=== PATIENT | female | born 1935 | race Caucasian/White ===

== ENCOUNTER 2018-09-17 10:36 | Day surgery (SDC) | payer MEDICARE, MEDICAID, SELFPAY ==
[2018-09-17] VITALS (7 sets, daily range): BP systolic 116–146; BP diastolic 69–84; PULSE 57–69; RESP 11–16; TEMP 36.2–36.6; O2SAT 94–98; BMI 25.4
--- NOTE | 2018-09-17 | PATH_ITS ---
[facility] Accession Number: [id number] . 01 Material submitted: . PART A: GASTRIC BIOPSIES PART B: BIOPSY OF GE JUNCTION PART C: ASCENDING COLON POLYP PART D: SIGMOID COLON POLYP . 01 Clinical history: . A: BIOPSIES FOR H.PYLORI . 02 Diagnosis: A. Gastric Biopsies: Focal chronic gastritis involving fundic mucosa with a fragment of normal appearing antral mucosa. Negative for evidence of Helicobacter on H/E stain. Negative for intestinal metaplasia. Negative for dysplasia and malignancy. . B. Biopsy, Gastroesophageal Junction: Gastroesophageal junction mucosa focally positive for specialized metaplasia, consistent with Cornejo's esophagus, as demonstrated by alcian blue stain. Negative for dysplasia and malignancy. Negative for squamous intraepithelial eosinophils. . C. Biopsy, Ascending Colon Polyp: Single polypoid-shaped fragment of colon mucosa associated with prominent mucosal lymphoid aggregate. Negative for dysplasia and malignancy. . D. Biopsy, Sigmoid Colon Polyp: Polypoid-shaped fragment of normal appearing colon mucosa consistent with mucosal polypoid redundancy. Negative for evidence of neoplasm and/or hyperplasia on multiple serial histologic sections. MR/09/19/2018 . 02 Electronically signed: . Wai Severino MD, Pathologist NPI- [id number] . 01 Gross description: . Received four formalin-filled containers each labeled with the patient's name. . A. In a container labeled gastric are three 0.1 to 0.3 cm portions of tissue. Entirely submitted in cassette A. B. In a container labeled GE junction, the specimen consists of a 0.3 cm portion of tissue. Entirely submitted in cassette B. C. In a container labeled ascending colon polyp, the specimen consists of a 0.2 cm portion of tissue. Entirely submitted in cassette C. D. In a container labeled sigmoid colon polyp, the specimen consists of a 0.1 cm portion of tissue. Entirely submitted in cassette D. [place] [id number] / . Pathologist provided ICD-10: K22.70 . 02 CPT . 581360, 241152, 677148, 693302, 010652 Performed at: 01 [facility] [address] [address], [place], [place] [id number] MD Toni Betancourt MD Phone: [phone] Performed at: [id number] [place] [id number] MD Whit Maurer MD Phone: [phone]
--- NOTE | 2018-09-17 11:29 | PM.HP.1 ---
History of Present Illness Date Patient Seen: 09/17/18 Chief complaint: [id number] COLONOSCOPY/EGD W/POSS BX Narrative: The patient is an 83-year-old female who was last seen at our office on August 19, 2018 for abdominal pain and a history of colon polyps. Please refer to that office note for further details. The patient currently has no alarm symptoms such as weight loss, or persistent vomiting. She states that her hemorrhoid has been irritated by the colon prep and she had a bit of bleeding yesterday. Patient History Medical History Abdominal pain (Acute) Adenomatous colon polyp (Acute) Hypercholesterolemia (Acute) TIA (transient ischemic attack) (Acute ~2012) Surgical History History of appendectomy (Acute) History of colonoscopy (Acute) History of tonsillectomy (Acute) Social History household members: none Family & Social History Social History: household members none Meds Home Medications Medication Instructions Recorded Confirmed Type ASPIRIN (Aspirin EC) 81 mg PO Q DAY #0 11/20/10 09/17/18 History [MULTIVITAMIN] 1 tab PO DAILY #0 11/20/10 09/17/18 History [VITAMIN D] 1 cap PO DAILY #0 11/20/10 09/17/18 History simvastatin 40 mg PO HS #0 11/20/10 09/17/18 History Fish Oil (#EPA/GLA) 2 sgl PO QDAY #0 03/14/12 09/17/18 History Allergies Allergy/AdvReac Type Severity Reaction Status Date / Time No Known Drug Allergies Allergy Verified 09/17/18 10:58 Exam Vital Signs (past 8 hours): - 09/17/18 11:11 Temperature 97.8 F Pulse Rate 69 Respiratory Rate 16 Blood Pressure 116/84 Pulse Oximetry 94 Oxygen Delivery Method Room Air Narrative Exam Narrative: General: Patient is well developed, not in apparent distress Cardiovascular: Regular rate and rhythm, no murmurs, rubs, or gallops; no evidence of edema; no palpable abdominal aortic aneurysm Gastrointestinal: Normoactive bowel sounds, soft, nontender, nondistended, no rebound tenderness, no hepatosplenomegaly, no evidence of hernia Assessment & Plan Assessment & Plan narrative: 83-year-old female with upper abdominal pain possibly due to dyspepsia who is here for an upper endoscopy. The patient also has a history of colon polyps and is due for colon polyp surveillance. Regarding the procedure(s), the risks and potential complications, benefits, and alternatives (including not doing the procedure) were discussed with the patient. The risks include but are not limited to bleeding, splenic injury, infection, perforation which may require surgical intervention, missed lesions, and adverse reactions to sedative medicines. After a question and answer period, the patient agreed to proceed with the procedure(s) and gives informed consent.
--- NOTE | 2018-09-17 12:01 | P.OP.ENDO_ITS ---
Operative Date/Time/Diagnoses Date of procedure: 09/17/18 Procedure Notes Procedure in detail: Surgeon: Cm Moss MD Procedure: Esophagogastroduodenoscopy with biopsy and colonoscopy with polypectomy Preoperative diagnosis: Abdominal pain, colon polyp surveillance Postoperative diagnosis: Irregular Z-line status post biopsy, gastroduodenitis status post gastric biopsy for H pylori, hiatal hernia; colon polyp status post polypectomy, grade 2 internal hemorrhoids, external hemorrhoids Medications: Conscious sedation using 4 mg IV of Midazolam and 100 mcg IV of Fentanyl for EGD; additional 1 mg IV midazolam for colonoscopy Preanesthesia Assessment An H and P was performed/updated and the Px?s ASA class is 2. The procedure was discussed in detail with the patient. The potential risks and complications including infection, bleeding, missed lesions, perforation, need for surgery in case of perforation, prolonged hospital stay, and were explained. A brief question and answer period was allotted and once all questions were answered, informed consent was obtained. The patient was brought back to the procedure room and placed on standard monitoring. The patient?s vital signs were monitored continuously throughout the entire procedure. Prior to starting, a timeout was performed to confirm the patient?s identity, allergies, medications, and procedure. Procedure in detail The patient was placed in left lateral decubitus position and a bite block was inserted. The tip of the upper endoscope was placed into the mouth and advanced without difficulty under direct visualization into the esophagus. Esophagus: The Z-line was irregular at 39 cm biopsies were taken to rule out Cornejo's esophagus Stomach: There was note of a small hiatal hernia. In the antrum and pre- pyloric area there was note of erythema consistent with gastritis. Biopsies were taken from the body and antrum to rule out H pylori Duodenum: There was erythema in the duodenal bulb and 1st portion of duodenum consistent with duodenitis. The 2nd portion of duodenum appeared normal After the upper endoscopy, preparations were made for the colonoscopy. Once adequate sedation was obtained a DANNA was performed. The digital rectal examination revealed external hemorrhoids. The tip of the colonoscope was placed in the anal canal and advanced without difficulty all the way to the cecum which was identified by the appendiceal orifice and the ileocecal valve. The terminal ileum was intubated to a distance of 5 cm from the ileocecal valve and the mucosa appeared normal. The colonoscope was brought back to the cecum and careful examination of all de la rosa of the colon was performed with irrigation of any residual stool In the ascending colon there was note of a 2 mm sessile polyp which was removed by means of cold Jumbo forceps. Resection and retrieval were complete with minimal bleeding. In the sigmoid colon, there was note of a 3 mm sessile polyp which was removed by means of cold Jumbo forceps. Resection and retrieval were complete with minimal bleeding. Retroflexion was performed in the rectum which revealed grade 2 internal hemorrhoids. Large external hemorrhoids were also seen on withdrawal of the scope. The patient tolerated the procedure well and will be brought back to the recovery area to be discharged once criteria are met. The prep was judged to be good/excellent and adequate to identify polyps less than 5 mm. The withdrawal time was 10 min. The total physician intraservice time was 28 min. Complications There were no complications and estimated blood loss was minimal. Recommendations Resume previous diet Continue outpatient medications Follow-up pathology results Repeat colonoscopy in 5 years if the polyps are adenomatous otherwise no further polyp surveillance is recommended given the patient's age Follow-up at our office with Dr. Peguero if the patient has persistent abdominal pain An emergency contact number was given to the patient for any complications related to the procedure
[2018-09-17] MEDS: MIDAZOLAM 5 MG/5 ML VIAL IV (12:02)
[2018-09-17] MEDS: fentaNYL 250 MCG/5 ML INJ IV (12:03)
--- NOTE | 2018-09-17 12:36 | PM.DS.1 ---
History of Present Illness Chief complaint: [id number] [id number] COLONOSCOPY/EGD W/POSS BX Narrative: The patient is an 83-year-old female who was last seen at our office on August 19, 2018 for abdominal pain and a history of colon polyps. Please refer to that office note for further details. The patient currently has no alarm symptoms such as weight loss, or persistent vomiting. She states that her hemorrhoid has been irritated by the colon prep and she had a bit of bleeding yesterday. Discharge Providers Discharge Date: 09/17/18 Primary care physician: David Manley MD Discharge provider: Cm Moss MD Exam Vital Signs (past 8 hours): - 09/17/18 11:11 Temperature 97.8 F Pulse Rate 69 Respiratory Rate 16 Blood Pressure 116/84 Pulse Oximetry 94 Oxygen Delivery Method Room Air Narrative Exam Narrative: General: Patient is well developed, not in apparent distress Cardiovascular: Regular rate and rhythm, no murmurs, rubs, or gallops; no evidence of edema; no palpable abdominal aortic aneurysm Gastrointestinal: Normoactive bowel sounds, soft, nontender, nondistended, no rebound tenderness, no hepatosplenomegaly, no evidence of hernia Discharge Plan Discharge Med Rec/Prescriptions Prescriptions: Continued ASPIRIN (Aspirin EC) 81 mg PO Q DAY Qty: 0 RF: 0 simvastatin 40 MG tablet 40 mg PO HS Qty: 0 RF: 0 [MULTIVITAMIN] 1 tab PO DAILY Qty: 0 RF: 0 [VITAMIN D] 1 cap PO DAILY Qty: 0 RF: 0 Fish Oil (#EPA/GLA) 2 sgl PO QDAY Qty: 0 RF: 0 Follow up/Referrals: David Manley MD [Primary Care Provider] - Discharge Orders: Discharge (Order); Ordered 09/17/18 Ordered By: Cm Moss Provider Discharge Instructions Diet: Diet as Tolerated Visit Report/Discharge Packet Stand Alone Forms: Colonoscopy Result: [facility], EGD Result: [facility] Discharge Data Primary Care Provider: David Manley Attending Provider: Cm Moss
== END 2018-09-17 14:00 ==
LOC: ENDO 10:45
PROVIDERS: PCP Internal Medicine; Visit Provider Internal Medicine Gastroenterology
PROC: 0DJ08ZZ Inspection of Upper Intestinal Tract, Via Natural or Artificial Opening Endoscopic (ICD-10-PCS; CPT 43235; principal; 2018-09-17 12:30)
PROC: 0DJD8ZZ Inspection of Lower Intestinal Tract, Via Natural or Artificial Opening Endoscopic (ICD-10-PCS; CPT 45378; 2018-09-17 12:30)
DX: K29.70 Gastritis, unspecified, without bleeding (principal); Z86.010 Personal history of colon polyps; E78.00 Pure hypercholesterolemia, unspecified; F17.210 Nicotine dependence, cigarettes, uncomplicated; D12.2 Benign neoplasm of ascending colon; D12.5 Benign neoplasm of sigmoid colon; K44.9 Diaphragmatic hernia without obstruction or gangrene; K64.1 Second degree hemorrhoids; K64.4 Residual hemorrhoidal skin tags
CPT/HCPCS: 45380; 43239; 88305; 88312; J2250; J3010

== ENCOUNTER → 2019-01-14 12:31 | Outpatient (CLI) | payer MEDICARE, MEDICAID, SELFPAY ==
--- NOTE | 2019-01-14 | DI.RAD.S_ITS ---
PROCEDURE: XR HIP W PEL IF DONE RT 2V INDICATIONS: right hip pain TECHNIQUE: 2 views of the hip were acquired. COMPARISON: None. FINDINGS: Bones: No fractures or dislocations. No suspicious bony lesions. The visualized pelvic ring appears intact. Soft tissues: No suspicious soft tissue calcifications or masses. IMPRESSION: Mild hip joint osteoarthritis, no trauma found. Dictated by: Satish Plaza M.D. on 01/14/2019 at 13:26 Approved by: Satish Plzaa M.D. on 01/14/2019 at 13:26
== END ==
PROVIDERS: PCP Internal Medicine; Visit Provider Nurse Practitioner Family
DX: M25.551 Pain in right hip (principal); M16.11 Unilateral primary osteoarthritis, right hip
CPT/HCPCS: 73502

== ENCOUNTER → 2019-07-21 13:24 | Outpatient (CLI) | payer MEDICARE, MEDICAID, SELFPAY ==
[2019-07-21 15:39] LABS: Cholesterol 150 mg/dL (140-199); HDL Cholesterol 51 mg/dL (40-60); LDL Cholesterol Calculated 65 mg/dL (<100); Triglycerides 169 mg/dL (35-150)
== END ==
PROVIDERS: PCP Internal Medicine; Visit Provider Internal Medicine
DX: E78.5 Hyperlipidemia, unspecified (principal)
CPT/HCPCS: 36415; 80061

== ENCOUNTER 2020-02-16 13:47 | Emergency (ER) | payer MEDICARE, MEDICAID, SELFPAY ==
[2020-02-16 13:56] VITALS: BP 133/91; PULSE 64; RESP 18; TEMP 36.8; O2SAT 96
--- NOTE | 2020-02-16 13:58 | DI.CT.S_ITS ---
PROCEDURE: CT HEAD/BRAIN WO CON INDICATIONS: LEFT side numbness SINCE AM TECHNIQUE: Noncontrast 4.5 mm thick angled axial sections acquired from the foramen magnum to the vertex, with coronal and sagittal reformats. For radiation dose reduction, the following was used: automated exposure control, adjustment of mA and/or kV according to patient size. COMPARISON: None. FINDINGS: Image quality: Excellent. CSF spaces: Basal cisterns are patent. No extra-axial fluid collections. The ventricles are symmetric in size and shape. Brain: No intracranial bleeds or masses. There is cerebral volume loss for age, with resultant ventricular and sulcal prominence. There are periventricular and deep white matter chronic small vessel ischemic changes. There is intracranial internal carotid artery atherosclerosis. Skull and face: Calvarium and visualized facial bones appear intact, without suspicious lesions. Sinuses: Visualized sinuses and mastoids are clear. IMPRESSION: No acute intracranial finding. No CT evidence of acute large territory infarct. If there is continued clinical concern for acute or recent ischemia, MRI is recommended. Dictated by: Tony Temple M.D. on 02/16/2020 at 14:15 Approved by: Tony Temple M.D. on 02/16/2020 at 14:17
--- NOTE | 2020-02-16 14:10 | PC.NURSE ---
Patient reports waking around 0700, reports feeling tired/fatigued and noticed some left arm and left leg numbness/pins/tingling. Denies weakness, denies headache. Negative Fast exam. Reports TIA in the past that involved numbness in left arm.
[2020-02-16 14:12] LABS: Add Manual Diff / Slide Review NO; Basophils Absolute Auto 100 /uL (0-100); Basophils Percent Auto 1.2 % (0-2); Eosinophils Absolute Auto 100 /uL (0-450); Hematocrit 41.6 % (36-46); Hemoglobin 13.8 g/dL (12.0-16.0); Lymphocytes Absolute Auto 1700 /uL (1100-4500); Lymphocytes Percent Auto 24.2 % (25-40); Mean Corpuscular HGB Conc 33.1 % (30-36); Mean Corpuscular Hemoglobin 31.7 PG (26-34); Mean Corpuscular Volume 95.6 fL (80-100); Monocytes Absolute Auto 500 /uL (0-900); Monocytes Percent Auto 7.7 % (3-14); Neutrophils Absolute Auto 4600 /uL (1500-7000); Neutrophils Percent Auto 64.9 % (50-75); Platelet Count 232 X10^3/uL (150-400); Red Blood Cell Count 4.35 X10^6/uL (4.0-5.2); Red Cell Distribution Width 12.9 % (11.6-14.8); White Blood Cell Count 7.1 X10^3/uL (4.5-11.0)
[2020-02-16 14:18] LABS: Prothrombin Time 11.5 SECONDS (10.1-12.7)
[2020-02-16 14:23] LABS: Alanine Aminotransferase 13 IU/L (<35); Albumin Globulin Ratio 1.4 (1.0-2.8); Alkaline Phosphatase 82 U/L (38-126); Aspartate Aminotransferase 24 IU/L (14-36); BUN Creatinine Ratio 20.8 (6-22); Bilirubin Total 0.3 mg/dL (0.2-1.3); Blood Urea Nitrogen 20 mg/dL (7-17); Calcium 9.5 mg/dL (8.4-10.2); Carbon Dioxide 24 mmol/L (22-32); Chloride 100 mmol/L (98-107); Creatine Kinase 39 U/L (30-135); Estimated Glomerular Filt Rate 55.6 mL/min (>60); Globulin 2.8 g/dL (1.7-4.1); Glucose 106 mg/dL (80-110); HEMOLYSIS 17 (0-50); Potassium 4.2 mmol/L (3.4-5.1); Sodium 132 mmol/L (137-145); Total Protein 6.8 g/dL (6.3-8.2)
[2020-02-16 14:34] LABS: Troponin I < 0.012 ng/mL (0.01-0.034)
--- NOTE | 2020-02-16 14:50 | ED.NEUROSD ---
HPI - Neuro Symptoms/Deficit General Chief Complaint: Neuro Symptoms/Deficit Stated Complaint: left side numbness Time Seen by Provider: 02/16/20 14:25 Source: patient Mode of arrival: Ambulatory History of Present Illness HPI Narrative: CC: left hemianesthesia/ paresthsia HPI: The patient is an 84-year-old female who states that she woke up at approximately 5:00 a.m. and noticed that she had left-sided numbness of her body. For she stated that it just felt strange but did not appreciate the the degree of the sensation. The patient noted that when she woke up at 7:00 a.m. in the morning the numbness was very prominent. She states that it was difficult to describe because it was a numbness associated with tingling that was almost mildly painful to touch which extended from her left shoulder all the way down to the toes of her foot. She states that it just felt very different. She admits to having a TIA in the past. She denied any associated headache change in vision double vision blind spots. She has had no fall or injury no neck pain. She denied a history of diabetes mellitus hypertension seizure disorder stroke myocardial infarction or COPD. The patient occasionally smokes cigarettes does not drink alcohol in used to use marijuana but no longer does. She denied any chest pain cough shortness of breath palpitations dizziness history of being on any anticoagulant or atrial fibrillation. She has had no back ache abdominal pain nausea vomiting diarrhea incontinence of urine or stool or any urinary symptoms. On Anticoagulants: No (81mg asa) Related Data Home Medications Medication Instructions Recorded Confirmed ASPIRIN (Aspirin EC) 81 mg PO Q DAY #0 11/20/10 09/17/18 [MULTIVITAMIN] 1 tab PO DAILY #0 11/20/10 09/17/18 [VITAMIN D] 1 cap PO DAILY #0 11/20/10 09/17/18 simvastatin 40 mg PO HS #0 11/20/10 09/17/18 Fish Oil (#EPA/GLA) 2 sgl PO QDAY #0 03/14/12 09/17/18 Previous Rx's Medication Instructions Recorded clopidogrel [Plavix] 75 mg PO DAILY #7 tab 02/16/20 Allergies Allergy/AdvReac Type Severity Reaction Status Date / Time No Known Drug Allergies Allergy Verified 09/17/18 10:58 Review of Systems Review of Systems Narrative: Patient's review of systems were all negative except for those mentioned in the history of present illness. Patient History Medical History Abdominal pain (Acute) Adenomatous colon polyp (Acute) Hypercholesterolemia (Acute) TIA (transient ischemic attack) (Acute ~2013) Surgical History History of appendectomy (Acute) History of colonoscopy (Acute) History of tonsillectomy (Acute) Social History household members: none Exam Narrative Exam Narrative: PHYSICAL EXAM: CONSTITUTIONAL: Awake, Alert, Oriented, Coherent, Cooperative pleasant in NAD. Does not appear toxic or ill. HEAD: AT/NC, no facial asymmetry. She has a symmetrical smile. She moves both sides of her forehead. She is able to move her tongue sideways with full range of motion. EENT: PERRL, FROM of eyes, no discharge, no nystagmus NOSE:No epistaxis or nasal drainage MOUTH:Oral mucosa is moist and pink, posterior pharynx is without erythema or exudate. NECK: Supple, no obvious JVD, Trachea is midline without stridor, no palpable LN. SPINE: Palpation of the cervical, Thoracic, Lumbar or Sacral spine reveals no gross deformity or tenderness. No CVA tenderness. THORAX: No deformity, retractions, chest wall tenderness. LUNGS: Clear, symmetrical breath sounds without respiratory distress. HEART: Normal heart tones, regular rhythm and rate without murmur. ABDOMEN: Soft, non-tender, normal bowel sounds without guarding, rebound, rigidity or palpable mass. EXTREMITIES: No edema, deformity, tenderness or cyanosis. SKIN: No rash, bruising, petechiae or purpura. NEURO: Awake, alert, oriented, conversive, cranial nerves II-XII are symmetrical , moves all 4 extremities and is ambulatory. The patient has no drift of either the arm or the leg. The patient has numbness tingling paresthesias of the entire left arm thorax abdomen and leg. [id number] is within normal limits. The patient has normal gaze. She has a slight field defect left lower quadrant which is chronic according to the patient. MENTAL HEALTH: Does not appear anxious or depressed. Initial Vital Signs Initial Vital Signs: Vital Signs Temperature 98.3 F 02/16/20 13:56 Pulse Rate 64 02/16/20 13:56 Respiratory Rate 18 02/16/20 13:56 Blood Pressure 133/91 H 02/16/20 13:56 Pulse Oximetry 96 02/16/20 13:56 Scores NIH Stroke Scale Level of Conciousness: Alert, keenly responsive Ask month/age: Answers both questions correctly. Open/close eyes, close hand: Performs both tasks correctly Best gaze horizontal: Normal Visual valentino: No visual loss Facial palsy: Normal symetrical movement Left arm drift: No drift for full 10 sec Right arm drift: No drift for full 10 sec Left leg drift: No drift for full 10 sec Right leg drift: No drift for full 10 sec Limb ataxia: Absent Sensory on face/arms/legs: Mild to moderate sensory loss, can tell touch Best language: No aphasia, normal Dysarthria: Normal Extinction or inattention: No abnormality Total NIH Stroke scale score: 1 Course Course Course Narrative: 1451: CT of the patient's head revealed: MPRESSION: No acute intracranial finding. No CT evidence of acute large territory infarct. If there is continued clinical concern for acute or recent ischemia, MRI is recommended. 1554: CTA of the head and neck revealed: IMPRESSION: Focal atherosclerotic calcification with irregularity and narrowing can be seen involving the proximal internal carotid arteries, with approximately 70% narrowing on the left at approximately 60% narrowing on the right. There is an apparent infundibulum seen involving the left MCA trifurcation, measuring 3-4 mm. Mild pulmonary emphysematous changes seen. Any quantitative measurements of stenosis were performed using NASCET criteria. 1600: The patient was informed that she has bilateral carotid stenoses on CT angiogram and that her initial CT of her head revealed no acute intracranial pathology. The patient was a informed that she is at risk of developing a stroke with these stenoses. She was also informed that we were obtaining an MRI of the brain to rule out any other possible stroke arm especially the area of the basal ganglia . The patient states that she was last known to be well at 5:00 a.m. this morning and the patient believes that she had probable symptoms in the middle of the night but did not pay any attention to them. 1800: MRI of the patient's brain revealed: IMPRESSION: No findings of acute or subacute infarction can be seen. Note is made of age-appropriate brain parenchymal volume loss and chronic small vessel ischemic changes. Incidental note is made of: Bilateral lens replacements Left-sided jodi bullosa 1814: Discussed the patient with the Teleneurology physician Dr. Haywood who agrees with me that this sounds like a thalamic stroke. He recommends that the patient be administered 150 mg of Plavix now and then be placed on 75 mg daily and continue her aspirin of 81 mg per day. She needs to be seen in follow-up by her primary care physician and possibly referred for evaluation of her carotid stenoses. Orders Ordered: ED Orders 02/16/20 13:58 CT head/brain wo con Stat 02/16/20 14:04 Complete Blood Count AUTO DIFF Stat Comprehensive Metabolic Panel Stat Erythrocyte Sedimentation Rate Stat Prothrombin Time INR Stat Troponin & CK Cardiac Panel Stat 02/16/20 14:51 CT angio head and neck Stat 02/16/20 15:55 MR head/brain wo con Stat Discontinued Medications Clopidogrel Bisulfate (Plavix) 150 mg PO NOW ONE Stop: 02/16/20 18:18 Last Admin: 02/16/20 18:30 Dose: 150 mg Documented by: JANE Vital Signs Vital signs: Vital Signs - 8 hr 02/16/20 13:56 02/16/20 18:32 Temperature 98.3 F Pulse Rate 64 77 Respiratory Rate 18 16 Blood Pressure 133/91 H 150/94 H Pulse Oximetry 96 99 MDM - Neuro Symptoms/Deficit Medical Records Attestation: I reviewed the patient's medical records. Lab Data Attestation: I reviewed the patient's lab results. Result diagrams: 02/16/20 14:04 02/16/20 14:04 Labs: Lab Results 02/16/20 02/16/20 02/16/20 Range/Units 14:04 14:04 14:04 WBC 7.1 (4.5-11.0) X10^3/uL RBC 4.35 (4.0-5.2) X10^6/uL Hgb 13.8 (12.0-16.0) g/dL Hct 41.6 (36-46) % MCV 95.6 (80-100) fL MCH 31.7 (26-34) PG MCHC 33.1 (30-36) % RDW 12.9 (11.6-14.8) % Plt Count 232 (150-400) X10^3/uL Neut % (Auto) 64.9 (50-75) % Lymph % (Auto) 24.2 L (25-40) % [place] % (Auto) 7.7 (3-14) % Eos % (Auto) 2.0 (2-4) % Baso % (Auto) 1.2 (0-2) % Neut # (Auto) 4600 (5098-6794) /uL Lymph # (Auto) 1700 (7047-0927) /uL [place] # (Auto) 500 (0-900) /uL Eos # (Auto) 100 (0-450) /uL Baso # (Auto) 100 (0-100) /uL ESR (0-20) MM/HR PT 11.5 (10.1-12.7) SECONDS INR 1.0 (0.9-1.3) Sodium 132 L (137-145) mmol/L Potassium 4.2 (3.4-5.1) mmol/L Chloride 100 (98-107) mmol/L Carbon Dioxide 24 (22-32) mmol/L BUN 20 H (7-17) mg/dL Creatinine 0.96 (0.52-1.04) mg/dL Estimated GFR 55.6 L (>60) mL/min BUN/Creatinine Ratio 20.8 (6-22) Glucose 106 (80-110) mg/dL Calcium 9.5 (8.4-10.2) mg/dL Total Bilirubin 0.3 (0.2-1.3) mg/dL AST 24 (14-36) IU/L ALT 13 (<35) IU/L Alkaline Phosphatase 82 (38-126) U/L Total Creatine Kinase 39 (30-135) U/L CK-MB (CK-2) TNP CK-MB (CK-2) Rel Index TNP Troponin I < 0.012 (0.01-0.034) ng/mL Total Protein 6.8 (6.3-8.2) g/dL Albumin 4.0 (3.5-5.0) g/dL Globulin 2.8 (1.7-4.1) g/dL Albumin/Globulin Ratio 1.4 (1.0-2.8) 02/16/20 Range/Units 14:04 WBC (4.5-11.0) X10^3/uL RBC (4.0-5.2) X10^6/uL Hgb (12.0-16.0) g/dL Hct (36-46) % MCV (80-100) fL MCH (26-34) PG MCHC (30-36) % RDW (11.6-14.8) % Plt Count (150-400) X10^3/uL Neut % (Auto) (50-75) % Lymph % (Auto) (25-40) % [place]ack[place] % (Auto) (3-14) % Eos % (Auto) (2-4) % Baso % (Auto) (0-2) % Neut # (Auto) (5067-0817) /uL Lymph # (Auto) (1621-4487) /uL [place]acken # (Auto) (0-900) /uL Eos # (Auto) (0-450) /uL Baso # (Auto) (0-100) /uL ESR 7 (0-20) MM/HR PT (10.1-12.7) SECONDS INR (0.9-1.3) Sodium (137-145) mmol/L Potassium (3.4-5.1) mmol/L Chloride (98-107) mmol/L Carbon Dioxide (22-32) mmol/L BUN (7-17) mg/dL Creatinine (0.52-1.04) mg/dL Estimated GFR (>60) mL/min BUN/Creatinine Ratio (6-22) Glucose (80-110) mg/dL Calcium (8.4-10.2) mg/dL Total Bilirubin (0.2-1.3) mg/dL AST (14-36) IU/L ALT (<35) IU/L Alkaline Phosphatase (38-126) U/L Total Creatine Kinase (30-135) U/L CK-MB (CK-2) CK-MB (CK-2) Rel Index Troponin I (0.01-0.034) ng/mL Total Protein (6.3-8.2) g/dL Albumin (3.5-5.0) g/dL Globulin (1.7-4.1) g/dL Albumin/Globulin Ratio (1.0-2.8) Discharge Plan Departure Patient Disposition: Home Clinical Impression: Hemianesthesia, Paresthesia of left arm and leg Carotid stenosis Qualifiers: Laterality: bilateral Qualified Code(s): I65.23 - Occlusion and stenosis of bilateral carotid arteries Stroke Qualifiers: CVA mechanism: unspecified Qualified Code(s): I63.9 - Cerebral infarction, unspecified Discharge Date/Time: 02/16/20 18:45 Instructions: DI for Stroke-Ischemic Activity Restrictions/Additional Instructions: 1. You need to follow-up with your primary care physician and be re-evaluated in 2-5 days. 2. You need to continue to take your aspirin 81 mg per day. 3. You need to take Plavix 75 mg daily for the next 2 weeks starting tomorrow. 4. If you develop any other symptoms of weakness headache changes in vision or other symptoms of a stroke you need to return to the emergency department. 5. You need to follow-up with your primary care physician to be referred to evaluate to the narrowings of your carotid arteries and follow them. Prescriptions: New clopidogrel [Plavix] 75 mg tablet 75 mg PO DAILY Qty: 7 RF: 1 No Action ASPIRIN (Aspirin EC) 81 mg PO Q DAY Qty: 0 RF: 0 simvastatin 40 MG tablet 40 mg PO HS Qty: 0 RF: 0 [MULTIVITAMIN] 1 tab PO DAILY Qty: 0 RF: 0 [VITAMIN D] 1 cap PO DAILY Qty: 0 RF: 0 Fish Oil (#EPA/GLA) 2 sgl PO QDAY Qty: 0 RF: 0 Referrals: David Manley MD [Primary Care Provider] -
--- NOTE | 2020-02-16 14:51 | DI.CT.S_ITS ---
PROCEDURE: CT ANGIO HEAD AND NECK INDICATIONS: left hemianesthesia/ hemiparesthesia TECHNIQUE: Noncontrast images were performed earlier in the day and not repeated. After the administration of intravenous contrast, 1 mm thick sections acquired from the aortic arch through the [place] of [place]. Post-contrast 4.5 mm thick sections then re-acquired from the foramen magnum to the vertex. 3-dimensional yckzzem-ygtatxjpp-pholjczvrg (MIP) and/or volume rendering reformats were acquired of the central intracranial vasculature and neck separately. COMPARISON: [facility], MR, STROKE PROTOCOL A, 06/10/2007, 19:30. [facility], CT, CT HEAD/BRAIN WO CON, 02/16/2020, 13:55. [facility], CT, HEAD WITHOUT CONTRAST, 06/10/2007, 11:58. FINDINGS: Image quality: Excellent. BRAIN: CSF spaces: Ventricles are normal in size and shape. Basal cisterns are patent. No extra-axial fluid collections. Brain: No midline shift. No intracranial bleeds or masses. Bright-white matter interface appears intact. Skull and face: Calvarium and facial bones appear intact, without suspicious lesions. Orbits appear normal. Sinuses: Sinuses and mastoids are clear. HEAD CT ANGIOGRAPHY: Anterior circulation: Intracranial internal carotid arteries are normal in size and flow. The flow within the paired anterior cerebral arteries is normal and symmetric. An apparent infundibulum is seen involving the left MCA trifurcation, as on series 4, image 62 measuring 3-4 mm. The flow within the middle cerebral arteries is normal and symmetric. The anterior communicating artery is seen. Posterior circulation: Visualized portions of the vertebral arteries demonstrate normal caliber, and join to form a normal appearing basilar artery. Flow within the posterior cerebral arteries is normal and symmetric. No aneurysms are seen. NECK CT ANGIOGRAPHY: Carotid system: The great vessels demonstrate a conventional anatomy as they arise from the aortic arch. Dense atherosclerotic calcification can be seen of the aortic arch and the proximal great vessels. The origins of the common carotid arteries appear patent. The common carotid arteries demonstrate normal caliber and courses. The bifurcation regions demonstrate atherosclerotic calcification and irregularity. There is approximately 70% narrowing seen involving the left proximal internal carotid artery and approximately 60% narrowing seen involving the right proximal internal carotid artery. The more distal internal carotid arteries demonstrate normal course and caliber. Posterior circulation: The origins of the vertebral arteries both appear widely patent. The more superior extracranial portions of both vertebral arteries also demonstrate normal courses and calibers. They join to form a normal appearing basilar artery. Soft tissues: Visualized neck soft tissues demonstrate no suspicious abnormalities. Mild emphysematous changes are seen at the lung apices, including subpleural bleb formation. Bilateral globe surgery can be seen. Bones: No suspicious bony lesions. Visualized cervical spine appears normally aligned. There is moderate to severe disc space narrowing seen at C4-C5 with moderate disc space narrowing seen at C5-C6 and C6-C7. Focal degenerative changes seen involving the C1-C2 interface anteriorly. IMPRESSION: Focal atherosclerotic calcification with irregularity and narrowing can be seen involving the proximal internal carotid arteries, with approximately 70% narrowing on the left at approximately 60% narrowing on the right. There is an apparent infundibulum seen involving the left MCA trifurcation, measuring 3-4 mm. Mild pulmonary emphysematous changes seen. Any quantitative measurements of stenosis were performed using NASCET criteria. Dictated by: Kash Monsalve M.D. on 02/16/2020 at 14:28 Approved by: Kash Monsalve M.D. on 02/16/2020 at 14:33
[2020-02-16 15:19] LABS: Erythrocyte Sedimentation Rate 7 MM/HR (0-20)
--- NOTE | 2020-02-16 15:30 | PC.NURSE ---
patient passed swallow evaluation. Snack provided to patient per [place]
--- NOTE | 2020-02-16 15:55 | DI.MRI.S_ITS ---
PROCEDURE: MR HEAD/BRAIN WO CON INDICATIONS: basal ganglia stroke with Hemianesthesia/ paresthesia TECHNIQUE: Non-contrast axial T1 spin echo, axial T2 fast spin echo, sagittal and axial FLAIR, coronal T2 fast spin echo, axial gradient echo, axial diffusion and ADC through the brain. COMPARISON: [facility], CT, CT HEAD/BRAIN WO CON, 02/16/2020, 13:55. [facility], CT, CT ANGIO HEAD AND NECK, 02/16/2020, 14:48. [facility], MR, STROKE PROTOCOL A, 06/10/2007, 19:30. FINDINGS: Image quality: Excellent. CSF spaces: Ventricles appear symmetric in size and shape. Basal cisterns are patent. No extra-axial fluid collections. Brain: No intracranial bleeds or mass effects. There is cerebral volume loss for age. There are periventricular and deep white matter chronic small vessel ischemic changes. Brainstem appears normal. Diffusion-weighted images show no acute ischemic insults. No chronic ischemic insults. Normal intravascular flow voids are present. Skull and face: Calvarial bone marrow is normal in signal. Orbits are normal. Note is made of bilateral lens replacements. Sinuses: Sinuses and mastoids are clear. A left-sided jodi bullosa is incidentally noted. IMPRESSION: No findings of acute or subacute infarction can be seen. Note is made of age-appropriate brain parenchymal volume loss and chronic small vessel ischemic changes. Incidental note is made of: Bilateral lens replacements Left-sided jodi bullosa Dictated by: Kash Monsalve M.D. on 02/16/2020 at 15:35 Approved by: Kash Monsalve M.D. on 02/16/2020 at 15:36
[2020-02-16] MEDS: CLOPIDOGREL 75 MG TABLET 150 MG PO (18:30)
[2020-02-16 18:32] VITALS: BP 150/94; PULSE 77; RESP 16; O2SAT 99
== END 2020-02-16 18:45 | disposition home or self-care (01) ==
PROVIDERS: Emergency Provider Emergency Medicine; PCP Internal Medicine
DX: I65.23 Occlusion and stenosis of bilateral carotid arteries (principal); I63.9 Cerebral infarction, unspecified; R20.0 Anesthesia of skin; R20.2 Paresthesia of skin
CPT/HCPCS: 36415; 70450; 70496; 70498; 70551; 80053; 82550; 84484; 85025; 85610; 85651; 99284; Q9967

== ENCOUNTER → 2020-02-26 15:03 | Outpatient (CLI) | payer MEDICARE, MEDICAID, SELFPAY | PROVIDERS: PCP Registered Nurse; Referring Provider Registered Nurse; Visit Provider Registered Nurse | DX: M85.852 Other specified disorders of bone density and structure, left thigh (principal); Z78.0 Asymptomatic menopausal state; F17.200 Nicotine dependence, unspecified, uncomplicated | CPT/HCPCS: 77080 ==

== ENCOUNTER → 2020-11-02 09:53 | Outpatient (CLI) | payer MEDICARE, MEDICAID, SELFPAY ==
--- NOTE | 2020-11-02 09:55 | DI.US.S_ITS ---
PROCEDURE: US CAROTID DOPPLER BI INDICATIONS: STENOSIS TECHNIQUE: Color and pulse Doppler interrogation was performed of both carotid systems, with image documentation and velocity measurements. COMPARISON: [facility], US, CAROTID ARTERY DOPPLER BILAT, 04/12/2009, 13:00. [facility], CT, CT ANGIO HEAD AND NECK, 02/16/2020, 14:48. FINDINGS: Stenosis calculations are based on SRU (Society of Radiologists in Ultrasound) criteria. Right side: Brachial blood pressure: 145/79 mm Hg. Common carotid artery peak systolic velocity: 47 cm/sec (prior 59 cm/s). Internal carotid artery peak systolic velocity: 72 cm/sec (prior 195 cm/s). Internal carotid artery end diastolic velocity: 21 cm/sec (prior 67 cm/s). External carotid artery peak systolic velocity: 59 cm/sec (prior 59 cm/s). ICA/CCA peak systolic ratio: 1.5 (prior 3.2). Bright scale imaging description: Moderate atherosclerotic changes are seen. Percent internal carotid artery stenosis: Less than 50% by velocity criteria. Vertebral artery: Flow direction is antegrade. Left side: Brachial blood pressure: 160/89 mm Hg. Common carotid artery peak systolic velocity: 46 cm/sec (prior 78 cm/s). Internal carotid artery peak systolic velocity: 76 cm/sec (prior 68 cm/s). Internal carotid artery end diastolic velocity: 31 cm/sec (prior 26 cm/s). External carotid artery peak systolic velocity: 70 cm/sec (prior 62 cm/s). ICA/CCA peak systolic ratio: 1.7 (prior 0.8). Bright scale imaging description: Moderate atherosclerotic changes are seen. Percent internal carotid artery stenosis: Less than 50% by velocity criteria. Vertebral artery: Flow direction is antegrade. IMPRESSION: Carotid ultrasound now within normal limits, without a hemodynamically significant stenosis seen. Please correlate with interval treatment history. Dictated by: Kash Monsalve M.D. on 11/02/2020 at 12:20 Approved by: Kash Monsalve M.D. on 11/02/2020 at 12:22
[2020-11-02 11:13] LABS: Alanine Aminotransferase 12 IU/L (<35); Albumin Globulin Ratio 1.5 (1.0-2.8); Alkaline Phosphatase 78 U/L (38-126); Aspartate Aminotransferase 21 IU/L (14-36); BUN Creatinine Ratio 21.2 (6-22); Bilirubin Total 0.4 mg/dL (0.2-1.3); Blood Urea Nitrogen 18 mg/dL (7-17); Carbon Dioxide 27 mmol/L (22-32); Chloride 102 mmol/L (98-107); Cholesterol 129 mg/dL (140-199); Estimated Glomerular Filt Rate > 60.0 mL/min (>60); Globulin 2.7 g/dL (1.7-4.1); Glucose 97 mg/dL (80-110); HDL Cholesterol 51 mg/dL (40-60); HEMOLYSIS < 15 (0-50); LDL Cholesterol Calculated 56 mg/dL (<100); Potassium 4.2 mmol/L (3.4-5.1); Sodium 135 mmol/L (137-145); Total Protein 6.7 g/dL (6.3-8.2); Triglycerides 112 mg/dL (35-150)
== END ==
PROVIDERS: PCP Registered Nurse; Referring Provider Registered Nurse; Visit Provider Registered Nurse
DX: I65.23 Occlusion and stenosis of bilateral carotid arteries (principal); E78.5 Hyperlipidemia, unspecified; Z86.73 Personal history of transient ischemic attack (TIA), and cerebral infarction without residual deficits
CPT/HCPCS: 36415; 80053; 80061; 93880

== ENCOUNTER 2020-11-15 16:43 | Emergency (ER) | payer MEDICARE, MEDICAID, SELFPAY ==
[2020-11-15 16:45] VITALS: BP 190/78; PULSE 83; RESP 14; TEMP 37; O2SAT 98; BMI 25.7
[2020-11-15 16:49] VITALS: BP 190/78; PULSE 82; O2SAT 96
--- NOTE | 2020-11-15 16:58 | ED_ITS ---
HPI - GI Bleed General Chief complaint: GI Bleed Stated complaint: BLOOD IN STOOL Time Seen by Provider: 11/15/20 16:43 Source: patient Mode of arrival: Ambulatory Limitations: no limitations History of Present Illness HPI Narrative: Patient is an 85-year-old female. She is on aspirin and Plavix secondary to carotid artery stenosis. She is here on the recommendation from her primary doctor for evaluation of less than 1 day of bright red blood per rectum and also some dark colored stools. She reports no associated symptoms. No fevers. No abdominal pain. No pain with bowel movements. She is not vomiting any blood. She is not lightheaded. No chest pain. No shortness of breath. She does have a history of hemorrhoids but she does not think that they are causing her problems. She has no pain in this area. She states that it has only occurred 1 or 2 times today. She has been up and active in even did some gardening this afternoon prior to arrival here in the ER. Related Data Home Medications Medication Instructions Recorded Confirmed glucosamine HCl 500 mg tablet 500 mg PO BID 02/19/20 10/27/20 aspirin 81 mg tablet,delayed 81 mg PO DAILY 10/27/20 10/27/20 release multivitamin 1 tab PO DAILY 10/27/20 10/27/20 Previous Rx's Medication Instructions Recorded clopidogrel [Plavix] 75 mg PO DAILY #7 tab 02/16/20 simvastatin 40 mg tablet 40 mg PO BEDTIME #90 tab 09/20/20 Allergies Allergy/AdvReac Type Severity Reaction Status Date / Time No Known Drug Allergies Allergy Verified 11/15/20 16:52 Review of Systems Constitutional Constitutional: Denies fatigue, Denies fever(s) and Denies headache(s) Eyes Eyes: Denies change in vision ENT Ears, Nose, Mouth, and Throat: Denies headache(s) Cardiovascular Cardiovascular: Denies chest pain and Denies dyspnea Respiratory Respiratory: Denies dyspnea Gastrointestinal Gastrointestinal: Denies abdominal pain, Denies bloating, Reports hematochezia, Denies nausea and Denies vomiting Genitourinary Genitourinary: Denies dysuria Genitourinary: Denies abnormal vaginal bleeding and Denies dysuria Musculoskeletal Musculoskeletal: Denies arthralgias and Denies myalgias Integumentary/Breasts Skin/Breast: Denies rash Neurologic Neurologic: Denies behavioral changes and Denies headache(s) Psychiatric Psychiatric: Denies behavioral changes Endocrine Endocrine: Denies fatigue Hematologic/Lymphatic Comments: On aspirin and Plavix Allergic/Immunologic Allergic/Immunologic: Denies urticaria Patient History Medical History Abdominal pain Adenomatous colon polyp Hypercholesterolemia TIA (transient ischemic attack) (~2012) Surgical History History of appendectomy History of colonoscopy History of tonsillectomy Social History household members: none Smoking Status: Former smoker Smoking Status: Former smoker alcohol intake frequency: holidays/special occasions only Substance Use Type: does not use Exam Initial Vital Signs Initial Vital Signs: Vital Signs Temperature 98.6 F 11/15/20 16:45 Pulse Rate 83 11/15/20 16:45 Respiratory Rate 14 11/15/20 16:45 Blood Pressure 190/78 H 11/15/20 16:45 Pulse Oximetry 98 11/15/20 16:45 Const General: cooperative and comfortable Limitations: mental status not altered HENMT Head: normal to inspection and normocephalic Eyes General: appearance normal, both eyes and all related structures Resp Effort & Inspection: normal respiratory effort Auscultation: clear to auscultation bilaterally Cardio Rate: regular rate Rhythm: regular rhythm GI Inspection: non-distended Palpation: soft, No firm and No tender Rectal Exam: heme positive stool and hemorrhoids (Non thrombosed external hemorrhoids) Back/Spine/Pelvis Back: No CVA tenderness Skin Lesions: no lesions Rashes: no rashes Neuro General: patient alert, patient awake and patient oriented x3 Cognition: normal cognition Speech: speech normal Gait: normal gait Motor: muscle tone normal throughout Sensory Exam: no sensory deficits noted Extrem General: normal to inspection, capillary refill normal and No edema Psych Appearance: grossly normal and well kempt Scores GCS Central coma scale eye opening: Spontaneous [place] coma scale verbal response: Orientated [place] coma scale motor response: Obey commands [place] coma scale total score: 15 Course Orders Ordered: ED Orders 11/15/20 16:56 Complete Blood Count AUTO DIFF Stat Comprehensive Metabolic Panel Stat Lipase Stat Partial Thromboplastin Time Stat Prothrombin Time INR Stat Vital Signs Vital signs: Vital Signs - 8 hr 11/15/20 16:45 11/15/20 16:49 11/15/20 17:00 Temperature 98.6 F Pulse Rate 83 82 85 Respiratory Rate 14 Blood Pressure 190/78 H 190/78 H Pulse Oximetry 98 96 94 11/15/20 17:01 11/15/20 17:30 11/15/20 17:31 Temperature Pulse Rate 78 71 71 Respiratory Rate Blood Pressure 140/63 159/71 H Pulse Oximetry 95 93 92 MDM - GI Bleed Lab Data Attestation: I reviewed the patient's lab results. Result diagrams: 11/15/20 16:56 11/15/20 16:56 Labs: Lab Results 11/15/20 11/15/20 11/15/20 Range/Units 16:56 16:56 16:56 WBC 7.8 (4.5-11.0) X10^3/uL RBC 3.69 L (4.0-5.2) X10^6/uL Hgb 11.8 L (12.0-16.0) g/dL Hct 34.9 L (36-46) % MCV 94.5 (80-100) fL MCH 32.0 (26-34) PG MCHC 33.9 (30-36) % RDW 13.1 (11.6-14.8) % Plt Count 213 (150-400) X10^3/uL Neut % (Auto) 63.4 (50-75) % Lymph % (Auto) 25.1 (25-40) % [place] % (Auto) 8.4 (3-14) % Eos % (Auto) 1.9 L (2-4) % Baso % (Auto) 1.2 (0-2) % Neut # (Auto) 4900 (6595-8482) /uL Lymph # (Auto) 2000 (1049-2567) /uL [place] # (Auto) 700 (0-900) /uL Eos # (Auto) 200 (0-450) /uL Baso # (Auto) 100 (0-100) /uL PT 11.2 (10.1-12.7) SECONDS INR 1.0 (0.9-1.3) APTT 31 (26.4-36.2) SECONDS Sodium 131 L (137-145) mmol/L Potassium 4.1 (3.4-5.1) mmol/L Chloride 102 (98-107) mmol/L Carbon Dioxide 22 (22-32) mmol/L BUN 27 H (7-17) mg/dL Creatinine 0.89 (0.52-1.04) mg/dL Estimated GFR > 60.0 (>60) mL/min BUN/Creatinine Ratio 30.3 H (6-22) Glucose 103 (80-110) mg/dL Calcium 9.8 (8.4-10.2) mg/dL Total Bilirubin 0.1 L (0.2-1.3) mg/dL AST 24 (14-36) IU/L ALT 13 (<35) IU/L Alkaline Phosphatase 89 (38-126) U/L Total Protein 6.5 (6.3-8.2) g/dL Albumin 3.7 (3.5-5.0) g/dL Globulin 2.8 (1.7-4.1) g/dL Albumin/Globulin Ratio 1.3 (1.0-2.8) Lipase (23-300) U/L 11/15/20 Range/Units 16:56 WBC (4.5-11.0) X10^3/uL RBC (4.0-5.2) X10^6/uL Hgb (12.0-16.0) g/dL Hct (36-46) % MCV (80-100) fL MCH (26-34) PG MCHC (30-36) % RDW (11.6-14.8) % Plt Count (150-400) X10^3/uL Neut % (Auto) (50-75) % Lymph % (Auto) (25-40) % [place] % (Auto) (3-14) % Eos % (Auto) (2-4) % Baso % (Auto) (0-2) % Neut # (Auto) (8911-8360) /uL Lymph # (Auto) (6758-0453) /uL [place] # (Auto) (0-900) /uL Eos # (Auto) (0-450) /uL Baso # (Auto) (0-100) /uL PT (10.1-12.7) SECONDS INR (0.9-1.3) APTT (26.4-36.2) SECONDS Sodium (137-145) mmol/L Potassium (3.4-5.1) mmol/L Chloride (98-107) mmol/L Carbon Dioxide (22-32) mmol/L BUN (7-17) mg/dL Creatinine (0.52-1.04) mg/dL Estimated GFR (>60) mL/min BUN/Creatinine Ratio (6-22) Glucose (80-110) mg/dL Calcium (8.4-10.2) mg/dL Total Bilirubin (0.2-1.3) mg/dL AST (14-36) IU/L ALT (<35) IU/L Alkaline Phosphatase (38-126) U/L Total Protein (6.3-8.2) g/dL Albumin (3.5-5.0) g/dL Globulin (1.7-4.1) g/dL Albumin/Globulin Ratio (1.0-2.8) Lipase 158 (23-300) U/L MDM Narrative Medical decision making narrative: Patient is not tachycardic, not hypotensive, does have grossly positive blood on rectal exam. She also has external hemorrhoids but they are not thrombosed. She has not have any abdominal tenderness. Has had less than 24 hours of symptoms. Feel we can hold on radiologic studies for now. She is not anemic. She was given information to contact the surgery department for follow-up to discuss the indications for a colonoscopy. She was also given strict return precautions she expressed understanding and agreement this plan. Discharge Plan Departure Patient Disposition: Home Clinical Impression: Rectal bleeding Instructions: Gastrointestinal Bleeding Activity Restrictions/Additional Instructions: Recommend that you continue all of your medications as directed. I do recommend that tomorrow you contact the [facility] surgeon's group at [phone]. We recommend a follow-up with them to discuss the indications for a colonoscopy. Return to the emergency department for any chest pain, abdominal pain, fevers, lightheadedness, shortness of breath, her any other new or worsening symptoms. Prescriptions: No Action simvastatin 40 mg tablet 40 mg PO BEDTIME Qty: 90 RF: 1 glucosamine HCl 500 mg tablet 500 mg PO BID RF: 0 aspirin 81 mg tablet,delayed release (DR/EC) 81 mg PO DAILY RF: 0 multivitamin Tablet 1 tab PO DAILY RF: 0 clopidogrel [Plavix] 75 mg tablet 75 mg PO DAILY Qty: 7 RF: 1 Referrals: Esvin Dubon ARNP [Primary Care Provider] -
[2020-11-15 17:00] VITALS: PULSE 85; O2SAT 94
[2020-11-15 17:01] VITALS: BP 140/63; PULSE 78; O2SAT 95
[2020-11-15 17:07] LABS: Add Manual Diff / Slide Review NO; Basophils Absolute Auto 100 /uL (0-100); Basophils Percent Auto 1.2 % (0-2); Eosinophils Absolute Auto 200 /uL (0-450); Eosinophils Percent Auto 1.9 % (2-4); Hematocrit 34.9 % (36-46); Hemoglobin 11.8 g/dL (12.0-16.0); Lymphocytes Absolute Auto 2000 /uL (1100-4500); Lymphocytes Percent Auto 25.1 % (25-40); Mean Corpuscular HGB Conc 33.9 % (30-36); Mean Corpuscular Volume 94.5 fL (80-100); Monocytes Absolute Auto 700 /uL (0-900); Monocytes Percent Auto 8.4 % (3-14); Neutrophils Absolute Auto 4900 /uL (1500-7000); Neutrophils Percent Auto 63.4 % (50-75); Platelet Count 213 X10^3/uL (150-400); Red Blood Cell Count 3.69 X10^6/uL (4.0-5.2); Red Cell Distribution Width 13.1 % (11.6-14.8); White Blood Cell Count 7.8 X10^3/uL (4.5-11.0)
[2020-11-15 17:15] LABS: Prothrombin Time 11.2 SECONDS (10.1-12.7)
[2020-11-15 17:17] LABS: PTT Partial Thromboplastin Tim 31 SECONDS (26.4-36.2)
[2020-11-15 17:21] LABS: Alanine Aminotransferase 13 IU/L (<35); Albumin 3.7 g/dL (3.5-5.0); Albumin Globulin Ratio 1.3 (1.0-2.8); Alkaline Phosphatase 89 U/L (38-126); Aspartate Aminotransferase 24 IU/L (14-36); BUN Creatinine Ratio 30.3 (6-22); Bilirubin Total 0.1 mg/dL (0.2-1.3); Blood Urea Nitrogen 27 mg/dL (7-17); Calcium 9.8 mg/dL (8.4-10.2); Carbon Dioxide 22 mmol/L (22-32); Chloride 102 mmol/L (98-107); Estimated Glomerular Filt Rate > 60.0 mL/min (>60); Globulin 2.8 g/dL (1.7-4.1); Glucose 103 mg/dL (80-110); HEMOLYSIS < 15 (0-50); Lipase 158 U/L (23-300); Potassium 4.1 mmol/L (3.4-5.1); Sodium 131 mmol/L (137-145); Total Protein 6.5 g/dL (6.3-8.2)
[2020-11-15 17:30] VITALS: PULSE 71; O2SAT 93
[2020-11-15 17:31] VITALS: BP 159/71; PULSE 71; O2SAT 92
== END 2020-11-15 18:05 | disposition home or self-care (01) ==
PROVIDERS: Emergency Provider Emergency Medicine; PCP Registered Nurse
DX: K62.5 Hemorrhage of anus and rectum (principal)
CPT/HCPCS: 36415; 80053; 83690; 85025; 85610; 85730; 99283

== ENCOUNTER → 2021-02-02 14:27 | Outpatient (CLI) | payer MEDICARE, MEDICAID, SELFPAY ==
--- NOTE | 2021-02-02 14:30 | DI.RAD.S_ITS ---
PROCEDURE: XR LUMBAR SPINE 2-3V INDICATIONS: lower back pain TECHNIQUE: 3 views of the lumbar spine were acquired. COMPARISON: None. FINDINGS: Bones: 5 [id number] vertebrae are present. There is trace anterior listhesis L2 on L3, L4 on L5, L5 on S1, trace retrolisthesis of L1 on L2. Multilevel moderate to severe disc space narrowing is present most severe at L5-S1. Severe foraminal narrowing is present L5-S1, moderate at L4-5 and L1-L2. No vertebral body compression fractures. No suspicious bony lesions. Soft tissues: Overlying bowel gas pattern is normal. No suspicious soft tissue calcifications. 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 Dictated by: Jonatan Jha RRA Interpreted: Teresa Berry MD on 02/02/2021 at 15:41 Transcribed by: TRAVIS on 02/02/2021 at 15:41 Approved by: Teresa Berry M.D. on 02/02/2021 at 18:57
== END ==
PROVIDERS: PCP Registered Nurse; Referring Provider Registered Nurse; Visit Provider Registered Nurse
DX: M54.5 Low back pain (principal); M47.817 Spondylosis without myelopathy or radiculopathy, lumbosacral region
CPT/HCPCS: 72100

== ENCOUNTER 2021-03-21 13:45 | Outpatient (RCR) | payer MEDICARE, MEDICAID, SELFPAY ==
--- NOTE | 2021-03-02 17:06 | PT.OIE ---
Current Diagnoses Low back pain (03/02/21) Repeated falls (03/02/21) Past Medical History (Last Reviewed 02/02/21 @ 14:30 by MAHAD Thomson) Abdominal pain Adenomatous colon polyp History of appendectomy History of colonoscopy History of tonsillectomy Hypercholesterolemia Lower back pain TIA (transient ischemic attack) (~2012) Past Surgical History (Last Reviewed 02/02/21 @ 14:30 by MAHAD Thomson) History of appendectomy History of colonoscopy History of tonsillectomy Visit Care Team Role Provider Type MAHAD Thomson Attending Provider Advanced Hematology Technologist Primary Care Provider Referring Provider Specialty: Medical Address: [address] [place] [address], [facility] Email: [email or web address] Physical Therapy Initial Evaluation PT-OP-A Visit Information Start: 03/02/21 08:42 Freq: Status: Active Protocol: Document 03/02/21 13:45 AW (Rec: 03/02/21 16:41 AW [email or web address]) Out-Patient Physical Therapy Visit Information Visit Information Visit Type Initial Evaluation Visit Start Time 13:00 Visit Stop Time 13:45 Total Visit Minutes 45 Visit Number 1 Number of MULTIMEDIA JOURNALIST Visits 0 Evaluation Information Evaluation Date 03/02/21 PT-OP-B Current Condition Start: 03/02/21 08:42 Freq: Status: Active Protocol: Document 03/02/21 13:45 AW (Rec: 03/02/21 08:52 AW [email or web address]) Current Condition History of Current Condition Onset Date 6 months Current Complaints falls, chronic LBP, new RLE fatigue History of Current Condition Opal is very active and keeps busy with tending her own and others' gardens. She used to work in the [employer] industry. She is a classically-trained solorzano and reports she is very familiar with breathing technique. She has fallen a few times in the garden but feels she is extra careful now and has not been falling regularly. She states she has a hard time after walking a short while. Right leg gets tired and doesn't want to move any more. She reports minimal or no pain since beginning to take glucosamine. She lives in [facility] apartment in [facility]. Her daughter lives nearby. Her falls have happened when she is in a hurry or not paying attention to task at hand (anticipating) . Last fall was about three months ago. None have been injurious. Prior Treatments and Tests 02/02/21 Lumbar spine x-ray: There is trace anterior listhesis L2 on L3, L4 on L5, L5 on S1, trace retrolisthesis of L1 on L2. Multilevel moderate to severe disc space narrowing is present most severe at L5-S1. Severe foraminal narrowing is present L5-S1, moderate at L4-5 and L1-L2. No vertebral body compression fractures. No suspicious bony lesions. Future Testing and Treatments Planned None identified Treatment Goals Patient/Caregiver Goals Pt would like to walk and work in her garden with more confidence. PT-OP-C Subjective Start: 03/02/21 08:42 Freq: Status: Active Protocol: Document 03/02/21 13:45 AW (Rec: 03/02/21 16:41 AW [email or web address]) OP-PT Subjective Patient Comments Patient Comments I'm not sure I need to be here. I'm not in any pain. Patient Questionnaires Oswestry Low Back Index Oswestry Score 12 Oswestry Impairment 1 to 19% Impaired (Score 1-19) OP-PT Pain Assessment Pain Assessment Grid Paper Pain Assessment Grid Completed No: Pt denies pain PT-OP-D Balance Start: 03/02/21 08:42 Freq: Status: Active Protocol: Document 03/02/21 13:45 AW (Rec: 03/02/21 16:48 AW [email or web address]) Balance Tests mCTSIB mCTSIB Position 1 30 mCTSIB Position 2 25 - 25 mCTSIB Position 3 30 mCTSIB Position 4 10 - 15 - 18 Single Limb Standing Single Limb- Right 8 sec with fingertip support Single Limb- Left <3 sec with UE support PT-OP-F Manual Assessment Start: 03/02/21 08:42 Freq: Status: Active Protocol: Document 03/02/21 13:45 AW (Rec: 03/02/21 16:48 AW [email or web address]) Manual Assessments Soft Tissue Assessment Soft Tissue Mobility Assessment Tender to palpation at right greater trochanter. PT-OP-H Neuro Start: 03/02/21 08:42 Freq: Status: Active Protocol: Document 03/02/21 13:45 AW (Rec: 03/02/21 16:48 AW [email or web address]) Sensation Evaluation Gross Sensation Gross Sensation WNL Coordination Evaluation Comments Coordination Comments Finger to nose, rapid alternating pronation/ supination, foot tapping all WNL. Deep Tendon Reflex & Clonus Assessment Deep Tendon Reflex Bilateral Achilles Deep Tendon Reflex 1+ Diminished Bilateral Patellar Deep Tendon Reflex 1+ Diminished Bilateral Bicep Deep Tendon Reflex 2+ Normal PT-OP-K Range of Motion Start: 03/02/21 08:42 Freq: Status: Active Protocol: Document 03/02/21 13:45 AW (Rec: 03/02/21 16:48 AW [email or web address]) Hip Goniometric Range of Motion Hip ROM Limitations Comments All hip ROM WFL. Internal rotation ~20 degrees and external rotation ~45 degrees bilaterally. PT-OP-M Strength Start: 03/02/21 08:42 Freq: Status: Active Protocol: Document 03/02/21 13:45 AW (Rec: 03/02/21 16:48 AW [email or web address]) Hip Strength Hip Manual Muscle Testing bilateral Flexion (L2) 4+ Good+ Extension (S1) 4+ Good+ Abduction 4+ Good+ Adduction 5 Normal External Rotation 5 Normal Internal Rotation 5 Normal Knee Strength Knee Manual Muscle Testing bilateral Flexion (S2) 5 Normal Extension (L3) 5 Normal Ankle/Foot Strength Ankle and Foot Manual Muscle Testing bilateral Dorsiflexion (L4) 5 Normal Plantarflexion (S1) 4+ Good+ PT-OP-T Assessment and Plan Start: 03/02/21 16:54 Freq: Status: Active Protocol: Document 03/02/21 13:45 AW (Rec: 03/02/21 17:05 AW [email or web address]) Physical Therapy Assessment Rehab Potential Rehabilitation Potential Excellent Evaluation Complexity Number of Personal Factors/Comorbidities 1-2 Number of Body Systems Impaired 1-2 Clinical Presentation at Evaluation Stable Impairments Impairments Activity Tolerance,Balance, Gait,Strength Goals Four Impairment falls Valve Inspector Goal (LTG) Pt will improve FGA score from 2430 to 2730 for reduced falls risk. LTG Duration 1 month - 04/07/21 Three Impairment single leg stance Valve Inspector Goal (LTG) Pt will improve single leg stance to 15 seconds bilaterally without UE support to demonstrate improved balance and LE stability LTG Duration 1 month - 04/07/21 Two Impairment antalgic gait Nursing Home Goal (LTG) Pt will reduce right lateral lean in ipsilateral stance for improved gait mechanics and reduced falls risk. LTG Duration 1 month - 04/07/21 One Impairment lacks HEP Short Term Goal (STG) Pt will be independent with HEP to support therapy services provided in clinic. STG Duration 2 weeks - 03/16/21 Nursing Home Goal (LTG) Pt will be independent with HEP to promote balance and maintain therapy gains. LTG Duration 1 month - 04/07/21 Assessment Summary Assessment Opal is an active and independent 85 yo woman who presents to outpatient physical therapy with concern over falls. She has good strength overall and scores within or above norms for age- matched peers on standardized dynamic balance testing. However, she does have some hip strength deficits and specific difficulty maintaining balance on uneven ground. She is expected to benefit from a short course of PT to address her balance concerns and provide her with an appropriate HEP to improve her confidence in the garden and in the community. Physical Therapy Plan Frequency and Duration Frequency of Treatment 1x/Week Duration of Treatment 1 month Plan of Care Start Date 03/02/21 Plan of Care End Date 04/07/21 Therapeutic Interventions Therapeutic Interventions Balance Training,Gait Training ,Home Exercise Program, Neuromuscular Re-education, Patient/Caregiver Education, Self-Care/Home Management, Therapeutic Activities, Therapeutic Exercises Next Visit Focus/Plan Next Note Type Treatment Note Next Visit Plan Initiate static and dynamic balance interventions
--- NOTE | 2021-03-02 17:06 | PT.OPPOC ---
Physical, Occupational & Speech Therapy At [facility] Current Diagnoses Low back pain (03/02/21) Repeated falls (03/02/21) Visit Care Team Role Provider Type MAHAD Thomson Attending Provider Advanced Coal Trammer Primary Care Provider Referring Provider Specialty: Medical Address: [address] [place] [address], [facility] Email: [email or web address] Plan Of Care PT-OP-T Assessment and Plan Start: 03/02/21 16:54 Freq: Status: Active Protocol: Document 03/02/21 13:45 AW (Rec: 03/02/21 17:05 AW [email or web address]) Physical Therapy Assessment Rehab Potential Rehabilitation Potential Excellent Evaluation Complexity Number of Personal Factors/Comorbidities 1-2 Number of Body Systems Impaired 1-2 Clinical Presentation at Evaluation Stable Impairments Impairments Activity Tolerance,Balance, Gait,Strength Goals Four Impairment falls Manager Voice Goal (LTG) Pt will improve FGA score from 24/30 to 27/30 for reduced falls risk. LTG Duration 1 month - 04/07/21 Three Impairment single leg stance Manager Voice Goal (LTG) Pt will improve single leg stance to 15 seconds bilaterally without UE support to demonstrate improved balance and LE stability LTG Duration 1 month - 04/07/21 Two Impairment antalgic gait Manager Voice Goal (LTG) Pt will reduce right lateral lean in ipsilateral stance for improved gait mechanics and reduced falls risk. LTG Duration 1 month - 04/07/21 One Impairment lacks HEP Short Term Goal (STG) Pt will be independent with HEP to support therapy services provided in clinic. STG Duration 2 weeks - 03/16/21 Manager Voice Goal (LTG) Pt will be independent with HEP to promote balance and maintain therapy gains. LTG Duration 1 month - 04/07/21 Assessment Summary Assessment Opal is an active and independent 85 yo woman who presents to outpatient physical therapy with concern over falls. She has good strength overall and scores within or above norms for age- matched peers on standardized dynamic balance testing. However, she does have some hip strength deficits and specific difficulty maintaining balance on uneven ground. She is expected to benefit from a short course of PT to address her balance concerns and provide her with an appropriate HEP to improve her confidence in the garden and in the community. Physical Therapy Plan Frequency and Duration Frequency of Treatment 1x/Week Duration of Treatment 1 month Plan of Care Start Date 03/02/21 Plan of Care End Date 04/07/21 Therapeutic Interventions Therapeutic Interventions Balance Training,Gait Training ,Home Exercise Program, Neuromuscular Re-education, Patient/Caregiver Education, Self-Care/Home Management, Therapeutic Activities, Therapeutic Exercises Next Visit Focus/Plan Next Note Type Treatment Note Next Visit Plan Initiate static and dynamic balance interventions Plan of Care Dates Plan of Care Start Date 03/02/21 Plan of Care End Date 04/07/21 Electronically Signed by: Trinity Chawla, PT 03/02/21 1319 Please Sign and Return: I have reviewed this Plan of Care and certify that the skilled therapy services above are required to meet the patient?s needs. Physician Signature Date Printed Name and Credentials Clinical Instructor Signature Printed Name and Credentials
--- NOTE | 2021-03-08 17:28 | PT.OTN ---
Current Diagnoses Low back pain (03/08/21) Repeated falls (03/08/21) Physical Therapy Treatment Note PT-OP-A Visit Information Start: 03/02/21 08:42 Freq: Status: Active Protocol: Document 03/08/21 16:00 AW (Rec: 03/08/21 16:05 AW [id number]) Out-Patient Physical Therapy Visit Information Visit Information Visit Type Treatment Note Visit Start Time 15:15 Visit Stop Time 16:00 Total Visit Minutes 45 Visit Number 2 Number of WATER MANGLE TENDER Visits 0 Evaluation Information Evaluation Date 03/02/21 PT-OP-B Current Condition Start: 03/02/21 08:42 Freq: Status: Active Protocol: Document 03/02/21 13:45 AW (Rec: 03/02/21 08:52 AW [email or web address]) Current Condition History of Current Condition Onset Date 6 months Current Complaints falls, chronic LBP, new RLE fatigue History of Current Condition Opal is very active and keeps busy with tending her own and others' gardens. She used to work in the [employer] industry. She is a classically-trained solorzano and reports she is very familiar with breathing technique. She has fallen a few times in the garden but feels she is extra careful now and has not been falling regularly. She states she has a hard time after walking a short while. Right leg gets tired and doesn't want to move any more. She reports minimal or no pain since beginning to take glucosamine. She lives in [facility] apartment in [facility]. Her daughter lives nearby. Her falls have happened when she is in a hurry or not paying attention to task at hand (anticipating) . Last fall was about three months ago. None have been injurious. Prior Treatments and Tests 02/02/21 Lumbar spine x-ray: There is trace anterior listhesis L2 on L3, L4 on L5, L5 on S1, trace retrolisthesis of L1 on L2. Multilevel moderate to severe disc space narrowing is present most severe at L5-S1. Severe foraminal narrowing is present L5-S1, moderate at L4-5 and L1-L2. No vertebral body compression fractures. No suspicious bony lesions. Future Testing and Treatments Planned None identified Treatment Goals Patient/Caregiver Goals Pt would like to walk and work in her garden with more confidence. PT-OP-C Subjective Start: 03/02/21 08:42 Freq: Status: Active Protocol: Document 03/08/21 16:00 AW (Rec: 03/08/21 16:05 AW [id number]) OP-PT Subjective Patient Comments Patient Comments I moved a lot of compost bags this morning. PT-OP-D Balance Start: 03/02/21 08:42 Freq: Status: Active Protocol: Document 03/02/21 13:45 AW (Rec: 03/02/21 16:48 AW [email or web address]) Balance Tests mCTSIB mCTSIB Position 1 30 mCTSIB Position 2 25 - 25 mCTSIB Position 3 30 mCTSIB Position 4 10 - 15 - 18 Single Limb Standing Single Limb- Right 8 sec with fingertip support Single Limb- Left <3 sec with UE support PT-OP-F Manual Assessment Start: 03/02/21 08:42 Freq: Status: Active Protocol: Document 03/02/21 13:45 AW (Rec: 03/02/21 16:48 AW [email or web address]) Manual Assessments Soft Tissue Assessment Soft Tissue Mobility Assessment Tender to palpation at right greater trochanter. PT-OP-H Neuro Start: 03/02/21 08:42 Freq: Status: Active Protocol: Document 03/02/21 13:45 AW (Rec: 03/02/21 16:48 AW [email or web address]) Sensation Evaluation Gross Sensation Gross Sensation WNL Coordination Evaluation Comments Coordination Comments Finger to nose, rapid alternating pronation/ supination, foot tapping all WNL. Deep Tendon Reflex & Clonus Assessment Deep Tendon Reflex Bilateral Achilles Deep Tendon Reflex 1+ Diminished Bilateral Patellar Deep Tendon Reflex 1+ Diminished Bilateral Bicep Deep Tendon Reflex 2+ Normal PT-OP-K Range of Motion Start: 03/02/21 08:42 Freq: Status: Active Protocol: Document 03/02/21 13:45 AW (Rec: 03/02/21 16:48 AW [email or web address]) Hip Goniometric Range of Motion Hip ROM Limitations Comments All hip ROM WFL. Internal rotation ~20 degrees and external rotation ~45 degrees bilaterally. PT-OP-M Strength Start: 03/02/21 08:42 Freq: Status: Active Protocol: Document 03/02/21 13:45 AW (Rec: 03/02/21 16:48 AW [email or web address]) Hip Strength Hip Manual Muscle Testing bilateral Flexion (L2) 4+ Good+ Extension (S1) 4+ Good+ Abduction 4+ Good+ Adduction 5 Normal External Rotation 5 Normal Internal Rotation 5 Normal Knee Strength Knee Manual Muscle Testing bilateral Flexion (S2) 5 Normal Extension (L3) 5 Normal Ankle/Foot Strength Ankle and Foot Manual Muscle Testing bilateral Dorsiflexion (L4) 5 Normal Plantarflexion (S1) 4+ Good+ PT-OP-Q Treatments Start: 03/02/21 08:42 Freq: Status: Active Protocol: Document 03/08/21 16:00 AW (Rec: 03/08/21 16:05 AW [id number]) Therapeutic Exercises Supine Exercises bridge Supine Exercise Name bridge Equipment Used 3SH x 10 Sidelying Exercises clamshell Sidelying Exercise Name clamshell Side bilateral Resistance AROM Reps/Minutes x10 Comments cued stacked hips Standing Exercises resisted hip extension Standing Exercise Name resisted hip extension Side bilateral Resistance TB2 Reps/Minutes x10 Comments cued posture, increase hip excursion resisted hip abduction Standing Exercise Name resisted hip abduction Side bilateral Resistance TB2 Reps/Minutes x 10 Comments cued tall posture, limit lateral lean lateral band walk Standing Exercise Name lateral band walk Equipment Used yellow loop Reps/Minutes 15' x 2 laps Neuro Re-Education Treatment Balance Activities static balance Details WBOS, NBOS, EO EC head turns and nods Surface firm and foam Reps/Duration 25 min Comments Pt tolerates all conditions well but has decreased stabilty on foam PT-OP-T Assessment and Plan Start: 03/02/21 16:54 Freq: Status: Active Protocol: Document 03/08/21 16:00 AW (Rec: 03/08/21 17:28 AW [email or web address]) Physical Therapy Assessment Goals Four Impairment falls Wheel Press Operator Goal (LTG) Pt will improve FGA score from 24/30 to 27/30 for reduced falls risk. LTG Duration 1 month - 04/07/21 Three Impairment single leg stance Wheel Press Operator Goal (LTG) Pt will improve single leg stance to 15 seconds bilaterally without UE support to demonstrate improved balance and LE stability LTG Duration 1 month - 04/07/21 Two Impairment antalgic gait Wheel Press Operator Goal (LTG) Pt will reduce right lateral lean in ipsilateral stance for improved gait mechanics and reduced falls risk. LTG Duration 1 month - 04/07/21 One Impairment lacks HEP Short Term Goal (STG) Pt will be independent with HEP to support therapy services provided in clinic. STG Duration 2 weeks - 03/16/21 Usp Goal (LTG) Pt will be independent with HEP to promote balance and maintain therapy gains. LTG Duration 1 month - 04/07/21 Assessment Summary Assessment Opal tolerated supine and standing ther ex and responded well to feedback for improved form. Initiated static balance interventions and assigned initial HEP. Physical Therapy Plan Frequency and Duration Frequency of Treatment 1x/Week Duration of Treatment 1 month Plan of Care Start Date 03/02/21 Plan of Care End Date 04/07/21 Therapeutic Interventions Therapeutic Interventions Balance Training,Gait Training ,Home Exercise Program, Neuromuscular Re-education, Patient/Caregiver Education, Self-Care/Home Management, Therapeutic Activities, Therapeutic Exercises Next Visit Focus/Plan Next Note Type Treatment Note Next Visit Plan Assess response to initial HEP and progress as able. Focus on uneven surface static balance. Begin SLS.
--- NOTE | 2021-03-14 16:44 | PT.OTN ---
Current Diagnoses Low back pain (03/14/21) Repeated falls (03/14/21) Physical Therapy Treatment Note PT-OP-A Visit Information Start: 03/02/21 08:42 Freq: Status: Active Protocol: Document 03/14/21 14:30 AW (Rec: 03/14/21 14:38 AW [id number]) Out-Patient Physical Therapy Visit Information Visit Information Visit Type Treatment Note Visit Start Time 13:56 Visit Stop Time 14:30 Total Visit Minutes 34 Visit Number 3 Number of COSMETOLOGY TEACHER Visits 0 Evaluation Information Evaluation Date 03/02/21 PT-OP-B Current Condition Start: 03/02/21 08:42 Freq: Status: Active Protocol: Document 03/02/21 13:45 AW (Rec: 03/02/21 08:52 AW [email or web address]) Current Condition History of Current Condition Onset Date 6 months Current Complaints falls, chronic LBP, new RLE fatigue History of Current Condition Opal is very active and keeps busy with tending her own and others' gardens. She used to work in the [employer] industry. She is a classically-trained solorzano and reports she is very familiar with breathing technique. She has fallen a few times in the garden but feels she is extra careful now and has not been falling regularly. She states she has a hard time after walking a short while. Right leg gets tired and doesn't want to move any more. She reports minimal or no pain since beginning to take glucosamine. She lives in [facility] apartment in [facility]. Her daughter lives nearby. Her falls have happened when she is in a hurry or not paying attention to task at hand (anticipating) . Last fall was about three months ago. None have been injurious. Prior Treatments and Tests 02/02/21 Lumbar spine x-ray: There is trace anterior listhesis L2 on L3, L4 on L5, L5 on S1, trace retrolisthesis of L1 on L2. Multilevel moderate to severe disc space narrowing is present most severe at L5-S1. Severe foraminal narrowing is present L5-S1, moderate at L4-5 and L1-L2. No vertebral body compression fractures. No suspicious bony lesions. Future Testing and Treatments Planned None identified Treatment Goals Patient/Caregiver Goals Pt would like to walk and work in her garden with more confidence. PT-OP-C Subjective Start: 03/02/21 08:42 Freq: Status: Active Protocol: Document 03/14/21 14:30 AW (Rec: 03/14/21 14:38 AW [id number]) OP-PT Subjective Patient Comments Patient Comments I got to visit my son yesterday. Have been doing exercises about every other day. PT-OP-D Balance Start: 03/02/21 08:42 Freq: Status: Active Protocol: Document 03/02/21 13:45 AW (Rec: 03/02/21 16:48 AW [email or web address]) Balance Tests mCTSIB mCTSIB Position 1 30 mCTSIB Position 2 25 - 25 mCTSIB Position 3 30 mCTSIB Position 4 10 - 15 - 18 Single Limb Standing Single Limb- Right 8 sec with fingertip support Single Limb- Left <3 sec with UE support PT-OP-F Manual Assessment Start: 03/02/21 08:42 Freq: Status: Active Protocol: Document 03/02/21 13:45 AW (Rec: 03/02/21 16:48 AW [email or web address]) Manual Assessments Soft Tissue Assessment Soft Tissue Mobility Assessment Tender to palpation at right greater trochanter. PT-OP-H Neuro Start: 03/02/21 08:42 Freq: Status: Active Protocol: Document 03/02/21 13:45 AW (Rec: 03/02/21 16:48 AW [email or web address]) Sensation Evaluation Gross Sensation Gross Sensation WNL Coordination Evaluation Comments Coordination Comments Finger to nose, rapid alternating pronation/ supination, foot tapping all WNL. Deep Tendon Reflex & Clonus Assessment Deep Tendon Reflex Bilateral Achilles Deep Tendon Reflex 1+ Diminished Bilateral Patellar Deep Tendon Reflex 1+ Diminished Bilateral Bicep Deep Tendon Reflex 2+ Normal PT-OP-K Range of Motion Start: 03/02/21 08:42 Freq: Status: Active Protocol: Document 03/02/21 13:45 AW (Rec: 03/02/21 16:48 AW [email or web address]) Hip Goniometric Range of Motion Hip ROM Limitations Comments All hip ROM WFL. Internal rotation ~20 degrees and external rotation ~45 degrees bilaterally. PT-OP-M Strength Start: 03/02/21 08:42 Freq: Status: Active Protocol: Document 03/02/21 13:45 AW (Rec: 03/02/21 16:48 AW [email or web address]) Hip Strength Hip Manual Muscle Testing bilateral Flexion (L2) 4+ Good+ Extension (S1) 4+ Good+ Abduction 4+ Good+ Adduction 5 Normal External Rotation 5 Normal Internal Rotation 5 Normal Knee Strength Knee Manual Muscle Testing bilateral Flexion (S2) 5 Normal Extension (L3) 5 Normal Ankle/Foot Strength Ankle and Foot Manual Muscle Testing bilateral Dorsiflexion (L4) 5 Normal Plantarflexion (S1) 4+ Good+ PT-OP-Q Treatments Start: 03/02/21 08:42 Freq: Status: Active Protocol: Document 03/14/21 14:30 AW (Rec: 03/14/21 14:38 AW [id number]) Therapeutic Exercises Supine Exercises bridge Supine Exercise Name bridge Equipment Used 3SH x 10 Comments HEP review; good independent performance Sidelying Exercises clamshell Sidelying Exercise Name clamshell Side bilateral Resistance TB2 Reps/Minutes x10 Comments cued stacked hips Standing Exercises hip hike Standing Exercise Name hip hike Side bilateral Equipment Used 6 step Reps/Minutes x10 Comments requires max cues for frontal plane movement; clinic only step ups Standing Exercise Name step ups Side bilateral Equipment Used 6 step, 8 step Reps/Minutes x15 Comments cued weight shift, glute facilitation heel raise Standing Exercise Name heel raise Side bilateral Equipment Used tennis ball between heels to control eversion Reps/Minutes 10 x 2 Comments prn rail support lateral band walk Standing Exercise Name lateral band walk Equipment Used TB2 Reps/Minutes 15' x 2 laps PT-OP-T Assessment and Plan Start: 03/02/21 16:54 Freq: Status: Active Protocol: Document 03/14/21 14:30 AW (Rec: 03/14/21 16:44 AW [email or web address]) Physical Therapy Assessment Goals Four Impairment falls Sheet Rock Applier Goal (LTG) Pt will improve FGA score from to for reduced falls risk. LTG Duration 1 month - 04/07/21 Three Impairment single leg stance Sheet Rock Applier Goal (LTG) Pt will improve single leg stance to 15 seconds bilaterally without UE support to demonstrate improved balance and LE stability LTG Duration 1 month - 04/07/21 Two Impairment antalgic gait Sheet Rock Applier Goal (LTG) Pt will reduce right lateral lean in ipsilateral stance for improved gait mechanics and reduced falls risk. LTG Duration 1 month - 04/07/21 One Impairment lacks HEP Short Term Goal (STG) Pt will be independent with HEP to support therapy services provided in clinic. STG Duration 2 weeks - 03/16/21 Detention Goal (LTG) Pt will be independent with HEP to promote balance and maintain therapy gains. LTG Duration 1 month - 04/07/21 Assessment Summary Assessment Short session today as pt arrives late. She tolerated increased resistance in ther ex. Step ups initiated to work on single leg strength and balance. Physical Therapy Plan Frequency and Duration Frequency of Treatment 1x/Week Duration of Treatment 1 month Plan of Care Start Date 03/02/21 Plan of Care End Date 04/07/21 Therapeutic Interventions Therapeutic Interventions Balance Training,Gait Training ,Home Exercise Program, Neuromuscular Re-education, Patient/Caregiver Education, Self-Care/Home Management, Therapeutic Activities, Therapeutic Exercises Next Visit Focus/Plan Next Note Type Treatment Note Next Visit Plan Assess response to initial HEP and progress as able. Focus on uneven surface static balance. Begin SLS.
--- NOTE | 2021-03-21 16:28 | PT.OTN ---
Current Diagnoses Low back pain (03/21/21) Repeated falls (03/21/21) Physical Therapy Treatment Note PT-OP-A Visit Information Start: 03/02/21 08:42 Freq: Status: Active Protocol: Document 03/21/21 14:27 AW (Rec: 03/21/21 14:32 AW [id number]) Out-Patient Physical Therapy Visit Information Visit Information Visit Type Discharge Summary Visit Start Time 13:48 Visit Stop Time 14:27 Total Visit Minutes 39 Visit Number 4 Number of WET FINISHER Visits 0 PT-OP-B Current Condition Start: 03/02/21 08:42 Freq: Status: Active Protocol: Document 03/02/21 13:45 AW (Rec: 03/02/21 08:52 AW [email or web address]) Current Condition History of Current Condition Onset Date 6 months Current Complaints falls, chronic LBP, new RLE fatigue History of Current Condition Opal is very active and keeps busy with tending her own and others' gardens. She used to work in the [employer] industry. She is a classically-trained solorzano and reports she is very familiar with breathing technique. She has fallen a few times in the garden but feels she is extra careful now and has not been falling regularly. She states she has a hard time after walking a short while. Right leg gets tired and doesn't want to move any more. She reports minimal or no pain since beginning to take glucosamine. She lives in [facility] apartment in [facility]. Her daughter lives nearby. Her falls have happened when she is in a hurry or not paying attention to task at hand (anticipating) . Last fall was about three months ago. None have been injurious. Prior Treatments and Tests 02/02/21 Lumbar spine x-ray: There is trace anterior listhesis L2 on L3, L4 on L5, L5 on S1, trace retrolisthesis of L1 on L2. Multilevel moderate to severe disc space narrowing is present most severe at L5-S1. Severe foraminal narrowing is present L5-S1, moderate at L4-5 and L1-L2. No vertebral body compression fractures. No suspicious bony lesions. Future Testing and Treatments Planned None identified Treatment Goals Patient/Caregiver Goals Pt would like to walk and work in her garden with more confidence. PT-OP-C Subjective Start: 03/02/21 08:42 Freq: Status: Active Protocol: Document 03/21/21 14:27 AW (Rec: 03/21/21 14:32 AW [id number]) OP-PT Subjective Patient Comments Patient Comments I feel like my balance is improving Patient Reported Progress Improving PT-OP-D Balance Start: 03/02/21 08:42 Freq: Status: Active Protocol: Document 03/02/21 13:45 AW (Rec: 03/02/21 16:48 AW [email or web address]) Balance Tests mCTSIB mCTSIB Position 1 30 mCTSIB Position 2 25 - 25 mCTSIB Position 3 30 mCTSIB Position 4 10 - 15 - 18 Single Limb Standing Single Limb- Right 8 sec with fingertip support Single Limb- Left <3 sec with UE support PT-OP-F Manual Assessment Start: 03/02/21 08:42 Freq: Status: Active Protocol: Document 03/02/21 13:45 AW (Rec: 03/02/21 16:48 AW [email or web address]) Manual Assessments Soft Tissue Assessment Soft Tissue Mobility Assessment Tender to palpation at right greater trochanter. PT-OP-H Neuro Start: 03/02/21 08:42 Freq: Status: Active Protocol: Document 03/02/21 13:45 AW (Rec: 03/02/21 16:48 AW [email or web address]) Sensation Evaluation Gross Sensation Gross Sensation WNL Coordination Evaluation Comments Coordination Comments Finger to nose, rapid alternating pronation/ supination, foot tapping all WNL. Deep Tendon Reflex & Clonus Assessment Deep Tendon Reflex Bilateral Achilles Deep Tendon Reflex 1+ Diminished Bilateral Patellar Deep Tendon Reflex 1+ Diminished Bilateral Bicep Deep Tendon Reflex 2+ Normal PT-OP-K Range of Motion Start: 03/02/21 08:42 Freq: Status: Active Protocol: Document 03/02/21 13:45 AW (Rec: 03/02/21 16:48 AW [email or web address]) Hip Goniometric Range of Motion Hip ROM Limitations Comments All hip ROM WFL. Internal rotation ~20 degrees and external rotation ~45 degrees bilaterally. PT-OP-M Strength Start: 03/02/21 08:42 Freq: Status: Active Protocol: Document 03/02/21 13:45 AW (Rec: 03/02/21 16:48 AW [email or web address]) Hip Strength Hip Manual Muscle Testing bilateral Flexion (L2) 4+ Good+ Extension (S1) 4+ Good+ Abduction 4+ Good+ Adduction 5 Normal External Rotation 5 Normal Internal Rotation 5 Normal Knee Strength Knee Manual Muscle Testing bilateral Flexion (S2) 5 Normal Extension (L3) 5 Normal Ankle/Foot Strength Ankle and Foot Manual Muscle Testing bilateral Dorsiflexion (L4) 5 Normal Plantarflexion (S1) 4+ Good+ PT-OP-Q Treatments Start: 03/02/21 08:42 Freq: Status: Active Protocol: Document 03/21/21 14:27 AW (Rec: 03/21/21 14:32 AW [id number]) Gym Equipment Shuttle Balance 1 Details WBOS NBOS with EC, head turns, large amplitude arm swings Reps/Duration 12 min Comments blue chains. Most challenged with EC Therapeutic Exercises Standing Exercises step ups Standing Exercise Name step ups Side bilateral Equipment Used 8 step Reps/Minutes 2x12 Comments RLE more challenging; occ CGA for recovery BLE heel raise Standing Exercise Name heel raise Side bilateral Equipment Used tennis ball between heels to control eversion Reps/Minutes 10 x 2 Comments prn rail support Neuro Re-Education Treatment Balance Activities agility Details box step, grapevine, patterning on agility ladder Reps/Duration 6 min Comments stable on level surface static balance Details rocker board, foam Reps/Duration 10 min Comments EO, EC, NBOS; improving even with fatigue, good balance reactions PT-OP-T Assessment and Plan Start: 03/02/21 16:54 Freq: Status: Active Protocol: Document 03/21/21 14:27 AW (Rec: 03/21/21 16:27 AW [email or web address]) Physical Therapy Assessment Goals Four Impairment falls Licensed Staff Mft Goal (LTG) Pt will improve FGA score from 2430 to 2730 for reduced falls risk. NOT ASSESSED LTG Duration 1 month - 04/07/21 Three Impairment single leg stance Shelter Goal (LTG) Pt will improve single leg stance to 15 seconds bilaterally without UE support to demonstrate improved balance and LE stability 03/21/21 - GOAL PROGRESS: Pt able to stand 10 sec on firm surface SLS with just unilateral fingertip support on rail LTG Duration 1 month - 04/07/21 Two Impairment antalgic gait Licensed Staff Mft Goal (LTG) Pt will reduce right lateral lean in ipsilateral stance for improved gait mechanics and reduced falls risk. LTG Duration 1 month - 04/07/21 One Impairment lacks HEP Short Term Goal (STG) Pt will be independent with HEP to support therapy services provided in clinic. STG Duration 2 weeks - 03/16/21 Licensed Staff Mft Goal (LTG) Pt will be independent with HEP to promote balance and maintain therapy gains. 03/22/21 MET LTG Duration 1 month - 04/07/21 Assessment Summary Assessment Opal reports improved confidence on uneven surfaces and is grateful for exercises to improve her balance. She feels ready to discharge therapy at this time. Physical Therapy Plan Frequency and Duration Frequency of Treatment 1x/Week Duration of Treatment 1 month Plan of Care Start Date 03/02/21 Plan of Care End Date 04/07/21 Therapeutic Interventions Therapeutic Interventions Balance Training,Gait Training ,Home Exercise Program, Neuromuscular Re-education, Patient/Caregiver Education, Self-Care/Home Management, Therapeutic Activities, Therapeutic Exercises Discharge Physical Therapy Discharge Reasons Patient Request Discharge Comments Pt feels confident with HEP and more stable on uneven surfaces overall. Pt requests discharge at this time.
== END 2021-03-22 07:54 | disposition home or self-care (01) ==
LOC: PHYS 13:45
PROVIDERS: PCP Registered Nurse; Referring Provider Registered Nurse; Visit Provider Registered Nurse
DX: M54.5 Low back pain (principal); R29.6 Repeated falls
CPT/HCPCS: 97110; 97112; 97161

== ENCOUNTER → 2021-09-06 12:09 | Outpatient (CLI) | payer MEDICARE, MEDICAID, SELFPAY ==
[2021-09-06 13:21] LABS: Add Manual Diff / Slide Review NO; Basophils Absolute Auto 100 /uL (0-100); Eosinophils Absolute Auto 100 /uL (0-450); Eosinophils Percent Auto 1.3 % (2-4); Hematocrit 43.6 % (36-46); Hemoglobin 14.5 g/dL (12.0-16.0); Lymphocytes Absolute Auto 1200 /uL (1100-4500); Lymphocytes Percent Auto 16.1 % (25-40); Mean Corpuscular HGB Conc 33.3 % (30-36); Mean Corpuscular Volume 93.3 fL (80-100); Monocytes Absolute Auto 600 /uL (0-900); Monocytes Percent Auto 7.8 % (3-14); Neutrophils Absolute Auto 5400 /uL (1500-7000); Neutrophils Percent Auto 73.8 % (50-75); Platelet Count 261 X10^3/uL (150-400); Red Blood Cell Count 4.67 X10^6/uL (4.0-5.2); Red Cell Distribution Width 13.4 % (11.6-14.8); White Blood Cell Count 7.4 X10^3/uL (4.5-11.0)
[2021-09-06 13:37] LABS: Alanine Aminotransferase 15 IU/L (<35); Albumin 4.1 g/dL (3.5-5.0); Albumin Globulin Ratio 1.2 (1.0-2.8); Alkaline Phosphatase 86 U/L (38-126); Aspartate Aminotransferase 26 IU/L (14-36); BUN Creatinine Ratio 20.7 (6-22); Bilirubin Total 0.4 mg/dL (0.2-1.3); Blood Urea Nitrogen 18 mg/dL (7-17); Calcium 9.8 mg/dL (8.4-10.2); Carbon Dioxide 29 mmol/L (22-32); Chloride 102 mmol/L (98-107); Cholesterol 144 mg/dL (140-199); Estimated Glomerular Filt Rate > 60.0 mL/min (>60); Globulin 3.3 g/dL (1.7-4.1); Glucose 107 mg/dL (80-110); HDL Cholesterol 40 mg/dL (40-60); HEMOLYSIS < 15 (0-50); LDL Cholesterol Calculated 39 mg/dL (<100); Potassium 4.7 mmol/L (3.4-5.1); Sodium 134 mmol/L (137-145); Total Protein 7.4 g/dL (6.3-8.2); Triglycerides 325 mg/dL (35-150)
== END ==
PROVIDERS: PCP Registered Nurse; Referring Provider Registered Nurse; Visit Provider Registered Nurse
DX: E78.5 Hyperlipidemia, unspecified (principal); D64.9 Anemia, unspecified; E87.1 Hypo-osmolality and hyponatremia
CPT/HCPCS: 36415; 80053; 80061; 85025

== ENCOUNTER 2021-11-13 10:58 | Emergency (ER) | payer MEDICARE, MEDICAID, SELFPAY ==
[2021-11-13] VITALS (9 sets, daily range): BP systolic 180–212; BP diastolic 82–113; PULSE 59–70; RESP 16–24; TEMP 36.6; O2SAT 95–99; BMI 25.8
--- NOTE | 2021-11-13 11:21 | DI.RAD.S_ITS ---
PROCEDURE: XR CHEST 1V INDICATIONS: chest pain TECHNIQUE: One view of the chest was acquired. COMPARISON: [facility], , CHEST 2 VIEW, 11/24/2015, 16:30. FINDINGS: Surgical changes and devices: None. Lungs and pleura: Subtle patchy opacities in bilateral lower lung valentino are seen more prominent in left lower lobe concerning for bilateral lower lobe patchy infiltrates. No pleural effusions or pneumothorax. Mediastinum: Mildly tortuous thoracic aorta is seen with aortic arch calcifications. Heart size is normal. Bones and chest wall: No suspicious bony lesions. Overlying soft tissues appear unremarkable. IMPRESSION: Finding is suggestive of left worse than right bilateral lower lobe patchy infiltrates. No pleural effusion or pneumothorax. Dictated by: Teja Brown M.D. on 11/13/2021 at 11:36 Approved by: Teja Brown M.D. on 11/13/2021 at 11:37
--- NOTE | 2021-11-13 11:23 | DI.CT.S_ITS ---
PROCEDURE: CT HEAD/BRAIN WO CON INDICATIONS: Syncope, balance and vision change yesterday TECHNIQUE: Noncontrast 4.5 mm thick angled axial sections acquired from the foramen magnum to the vertex, with coronal and sagittal reformats. For radiation dose reduction, the following was used: automated exposure control, adjustment of mA and/or kV according to patient size. COMPARISON: [facility], CT, CT HEAD/BRAIN WO CON, 02/16/2020, 13:55. FINDINGS: Image quality: Excellent. CSF spaces: Basal cisterns are patent. No extra-axial fluid collections. The ventricles are symmetric in size and shape. Brain: No intracranial bleeds or masses. 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 There is cerebral volume loss for age, with resultant ventricular and sulcal prominence. There are periventricular and deep white matter chronic small vessel ischemic changes. There is intracranial internal carotid artery atherosclerosis. Skull and face: Calvarium and visualized facial bones appear intact, without suspicious lesions. Sinuses: Visualized sinuses and mastoids are clear. IMPRESSION: 1. No acute intracranial abnormalities. 2. Cerebral volume loss and chronic microvascular ischemic changes. Dictated by: Saul Mckeon M.D. on 11/13/2021 at 12:30 Approved by: Saul Mckeon M.D. on 11/13/2021 at 12:33
--- NOTE | 2021-11-13 11:24 | DI.CT.S_ITS ---
PROCEDURE: CT CERVICAL SPINE WO CON INDICATIONS: syncope in garden yesterday TECHNIQUE: Noncontrast 3 mm thick sections acquired from the skull base to the T4 level. Sagittal and coronal reformats were then constructed. For radiation dose reduction, the following was used: automated exposure control, adjustment of mA and/or kV according to patient size. COMPARISON: [facility], CT, CT HEAD/BRAIN WO CON, 11/13/2021, 11:53. FINDINGS: Image quality: Excellent. Bones: No fractures or dislocations. There is degenerative disc disease, gpitplor-nv-bbnfil at C4-C5 and C5-C6, mudy-xj-invgmbvh at C3-C4 and C6-C7. Bilateral facet arthropathy, most pronounced at C3-C4. There is severe atlantoaxial joint degeneration. Visualized superior ribs are intact. Soft tissues: Prevertebral soft tissues are normal in thickness. No paravertebral hematomas. No apical pneumothoraces. Moderate atherosclerotic calcifications of the aortic arch. IMPRESSION: 1. No cervical spine fractures. 2. Degenerative disc and facet disease in cervical spine. Dictated by: Saul Mckeon M.D. on 11/13/2021 at 12:19 Approved by: Saul Mckeon M.D. on 11/13/2021 at 12:29
[2021-11-13 11:33] LABS: Add Manual Diff / Slide Review NO; Basophils Absolute Auto 100 /uL (0-100); Eosinophils Absolute Auto 100 /uL (0-450); Eosinophils Percent Auto 1.3 % (2-4); Hematocrit 40.9 % (36-46); Hemoglobin 14.1 g/dL (12.0-16.0); Lymphocytes Absolute Auto 1200 /uL (1100-4500); Lymphocytes Percent Auto 17.1 % (25-40); Mean Corpuscular HGB Conc 34.3 % (30-36); Mean Corpuscular Hemoglobin 31.8 PG (26-34); Mean Corpuscular Volume 92.5 fL (80-100); Monocytes Absolute Auto 500 /uL (0-900); Monocytes Percent Auto 7.3 % (3-14); Neutrophils Absolute Auto 5200 /uL (1500-7000); Neutrophils Percent Auto 73.3 % (50-75); Platelet Count 212 X10^3/uL (150-400); Red Blood Cell Count 4.43 X10^6/uL (4.0-5.2); Red Cell Distribution Width 13.6 % (11.6-14.8); White Blood Cell Count 7.1 X10^3/uL (4.5-11.0)
[2021-11-13 11:53] LABS: Alanine Aminotransferase 15 IU/L (<35); Albumin Globulin Ratio 1.3 (1.0-2.8); Alkaline Phosphatase 78 U/L (38-126); Aspartate Aminotransferase 26 IU/L (14-36); BUN Creatinine Ratio 24.7 (6-22); Bilirubin Total 0.3 mg/dL (0.2-1.3); Blood Urea Nitrogen 19 mg/dL (7-17); Calcium 9.4 mg/dL (8.4-10.2); Carbon Dioxide 22 mmol/L (22-32); Chloride 105 mmol/L (98-107); Creatine Kinase 45 U/L (30-135); Estimated Glomerular Filt Rate > 60 mL/min (>60); Globulin 3.1 g/dL (1.7-4.1); Glucose 133 mg/dL (80-110); HEMOLYSIS < 15 (0-50); Lipase 86 U/L (23-300); Magnesium 1.9 mg/dL (1.6-2.3); Sodium 136 mmol/L (137-145); Total Protein 7.1 g/dL (6.3-8.2)
[2021-11-13 12:05] LABS: Troponin I < 0.012 ng/mL (0.01-0.034)
--- NOTE | 2021-11-13 13:52 | ED_ITS ---
HPI - Neuro Symptoms/Deficit General Chief Complaint: Neuro Symptoms/Deficit Stated Complaint: States had a stroke yesterday per EMS Time Seen by Provider: 11/13/21 12:36 Mode of arrival: Family Vehicle History of Present Illness HPI Narrative: 86-year-old female history of probable TIA, current smoker, hyperlipidemia presenting today after an episode yesterday with fall. She said she was working in her garden she works in her garden 2 hours every day not abnormal for her. She is working in a small area with come post it was brick on either side. She said suddenly she felt off balance. She adamantly denies any dizziness nausea vomiting chest pain or palpitations. She said she sat on a bench to try and get her equilibrium when suddenly she felt off the bench. She hit her head possibly had a brief loss of consciousness but not really sure. She said she laid there for a little bit trying to get herself up. She eventually was able to crawl inside to her house she got onto the couch and took a nap. After that she felt back to her normal self. This is never happened to her previously. She felt a little fatigued and tired last night she talked to her sister and her friend EMS was eventually called she was back to normal they recommended outpatient follow- up. She called her primary care provider today who recommended she go to the ED for evaluation. She has not had any recurrent episodes. She is back to her normal self. She said that both of her legs were weak it was not just 1. She had no upper extremity issues. Denies numbness tingling weakness visual changes or other focal deficits On Anticoagulants: No Related Data Home Medications Medication Instructions Recorded Confirmed glucosamine HCl 500 mg tablet 500 mg PO BID 02/19/20 10/13/21 aspirin 81 mg tablet,delayed 81 mg PO DAILY 10/27/20 10/13/21 release multivitamin 1 tab PO DAILY 10/27/20 10/13/21 Fish Oil PO 02/02/21 10/13/21 cholecalciferol (vitamin D3) 25 25 mcg PO DAILY 08/25/21 10/13/21 mcg (1,000 unit) capsule zinc 50 mg tablet 50 mg PO DAILY 10/13/21 10/13/21 Previous Rx's Medication Instructions Recorded simvastatin 40 mg tablet See Rx Instructions .ROUTE 08/25/21 .COMPLEX #90 tab Allergies Allergy/AdvReac Type Severity Reaction Status Date / Time No Known Drug Allergies Allergy Verified 11/13/21 11:21 Review of Systems Review of Systems Narrative: GENERAL: Denies chills, fatigue, malaise, fever, sweats, travel HEENT: Denies sinus pain, ear pain, sore throat, difficulty swallowing, neck pain RESPIRATORY: Denies dyspnea, cough, wheezing, hemoptysis, sputum. CARDIOVASCULAR: Denies chest pain, palpitations, orthopnea, edema GASTROINTESTINAL: Denies nausea, vomiting, abdominal pain, diarrhea, constipation, melena. : Denies dysuria, frequency, incontinence, hematuria, urinary retention, flank pain. MUSCULOSKELETAL: Denies weakness, joint pain, or bony pain SKIN: No rash, no erythema, no pruritus NEUROLOGIC: See HPI PSYCHIATRIC: No concerning psychosocial issues. 12 point review of systems is negative except for those stated above and HPI Hematologic/Lymphatic On Anticoagulants: No Patient History Medical History (Updated 11/13/21 @ 14:52 by Yesenia Rawls DO) Abdominal pain Adenomatous colon polyp Cerebrovascular disease Do not resuscitate History of colon polyps Hypercholesterolemia Lower back pain Mixed hyperlipidemia Osteopenia after menopause TIA (transient ischemic attack) (~2012) Surgical History History of appendectomy History of colonoscopy History of tonsillectomy Social History household members: none Smoking Status: Former smoker Smoking Status: Former smoker alcohol intake frequency: holidays/special occasions only Substance Use Type: does not use Exam Initial Vital Signs Initial Vital Signs: Vital Signs Temperature 98 F 11/13/21 11:08 Pulse Rate 70 11/13/21 11:08 Respiratory Rate 16 11/13/21 11:08 Blood Pressure 212/95 H 11/13/21 11:08 Pulse Oximetry 99 11/13/21 11:08 GENERAL: Alert well-appearing 86-year-old female and in no acute distress. HEENT: Head atraumatic,EOMI, pupils reactive, face symmetric, moist mucous membranes CARDIOVASCULAR: Regular rate and rhythm without murmurs, rubs or gallops. RESPIRATORY: Breath sounds equal bilaterally, no wheezes rales or rhonchi. ABDOMEN: Soft, nontender. Normoactive bowel sounds all 4 quadrants. No guarding or rebound. EXTREMITIES: Normal range of motion, no clubbing or edema. Neurovascularly intact NEUROLOGICAL: Alert and oriented x4.Normal gait and speech. Cranial nerves II through XII grossly intact. Good olhlwx-pu-xkmi, good hxet-ad-cils, strength equal bilaterally, no dysarthria or aphasia, sensation in tact to soft touch bilaterally, no visual changes, no facial droop SKIN: Warm, dry, no laceration, no petechiae, no rashes or lesions. Scores NIH Stroke Scale Level of Conciousness: Alert, keenly responsive Ask month/age: Answers both questions correctly. Open/close eyes, close hand: Performs both tasks correctly Best gaze horizontal: Normal Visual valentino: No visual loss Facial palsy: Normal symetrical movement Left arm drift: No drift for full 10 sec Right arm drift: No drift for full 10 sec Left leg drift: No drift for full 5 sec Right leg drift: No drift for full 5 sec Limb ataxia: Absent Sensory on face/arms/legs: Normal, no sensory loss Best language: No aphasia, normal Dysarthria: Normal Extinction or inattention: No abnormality Total NIH Stroke scale score: 0 Course Orders Ordered: ED Orders 11/13/21 11:15 Complete Blood Count AUTO DIFF Stat Comprehensive Metabolic Panel Stat Lipase Stat Magnesium Stat Troponin & CK Cardiac Panel Stat 11/13/21 11:21 XR chest 1V Stat EKG-12 Lead Stat 11/13/21 11:23 CT head/brain wo con Stat 11/13/21 11:24 CT cervical spine wo con Stat 11/13/21 13:52 CT angio head and neck Stat Vital Signs Vital signs: Vital Signs - 8 hr 11/13/21 12:48 11/13/21 12:54 11/13/21 13:00 Pulse Rate 59 L 68 Respiratory Rate 24 24 Blood Pressure 191/82 H Pulse Oximetry 95 96 98 11/13/21 13:01 11/13/21 13:02 11/13/21 13:30 Pulse Rate 68 60 60 Respiratory Rate 24 23 18 Blood Pressure 196/113 H 184/90 H 186/87 H Pulse Oximetry 97 98 96 11/13/21 14:00 11/13/21 15:24 Pulse Rate 61 60 Respiratory Rate 16 Blood Pressure 180/87 H Pulse Oximetry 96 99 MDM - Neuro Symptoms/Deficit Lab Data Result diagrams: 11/13/21 11:15 11/13/21 11:15 Labs: Lab Results 11/13/21 11/13/21 Range/Units 11:15 11:15 WBC 7.1 (4.5-11.0) X10^3/uL RBC 4.43 (4.0-5.2) X10^6/uL Hgb 14.1 (12.0-16.0) g/dL Hct 40.9 (36-46) % MCV 92.5 (80-100) fL MCH 31.8 (26-34) PG MCHC 34.3 (30-36) % RDW 13.6 (11.6-14.8) % Plt Count 212 (150-400) X10^3/uL Neut % (Auto) 73.3 (50-75) % Lymph % (Auto) 17.1 L (25-40) % [place] % (Auto) 7.3 (3-14) % Eos % (Auto) 1.3 L (2-4) % Baso % (Auto) 1.0 (0-2) % Neut # (Auto) 5200 (3720-9768) /uL Lymph # (Auto) 1200 (9968-7240) /uL [place] # (Auto) 500 (0-900) /uL Eos # (Auto) 100 (0-450) /uL Baso # (Auto) 100 (0-100) /uL Sodium 136 L (137-145) mmol/L Potassium 4.0 (3.4-5.1) mmol/L Chloride 105 (98-107) mmol/L Carbon Dioxide 22 (22-32) mmol/L BUN 19 H (7-17) mg/dL Creatinine 0.77 (0.52-1.04) mg/dL Estimated GFR > 60 (>60) mL/min BUN/Creatinine Ratio 24.7 H (6-22) Glucose 133 H (80-110) mg/dL Calcium 9.4 (8.4-10.2) mg/dL Magnesium 1.9 (1.6-2.3) mg/dL Total Bilirubin 0.3 (0.2-1.3) mg/dL AST 26 (14-36) IU/L ALT 15 (<35) IU/L Alkaline Phosphatase 78 (38-126) U/L Total Creatine Kinase 45 (30-135) U/L CK-MB (CK-2) TNP CK-MB (CK-2) Rel Index TNP Troponin I < 0.012 (0.01-0.034) ng/mL Total Protein 7.1 (6.3-8.2) g/dL Albumin 4.0 (3.5-5.0) g/dL Globulin 3.1 (1.7-4.1) g/dL Albumin/Globulin Ratio 1.3 (1.0-2.8) Lipase 86 (23-300) U/L Imaging Data CT scan - head: Radiologist's Impression: Opal Gray MR#: [id number] : 1935 Acct:[id number] Age/Sex: 86 / F Date of Service: 11/13/21 Loc: ED Accession Number: [id number] ?? Procedure: CT head/brain wo con Ordering Provider: Yesenia Rawls D.O. PROCEDURE:? CT HEAD/BRAIN WO CON ? INDICATIONS:? Syncope, balance and vision change yesterday ? TECHNIQUE:? Noncontrast 4.5 mm thick angled axial sections acquired from the foramen magnum to the vertex, with coronal and sagittal reformats.? For radiation dose reduction, the following was used:? automated exposure control, adjustment of mA and/or kV according to patient size.? ? COMPARISON:? [facility], CT, CT HEAD/BRAIN WO CON, 02/16/2020, 13:55. ? FINDINGS:? Image quality:? Excellent.? ? CSF spaces:? Basal cisterns are patent.? No extra-axial fluid collections.? The ventricles are symmetric in size and shape.? ? Brain:? No intracranial bleeds or masses.? Old lacunar infarct in left basal ganglia.? There is cerebral volume loss for age, with resultant ventricular and sulcal prominence.? There are periventricular and deep white matter chronic small vessel ischemic changes.? There is intracranial internal carotid artery atherosclerosis.? ? Skull and face:? Calvarium and visualized facial bones appear intact, without suspicious lesions.? ? Sinuses:? Visualized sinuses and mastoids are clear.? ? IMPRESSION:? ? 1. No acute intracranial abnormalities. 2. Cerebral volume loss and chronic microvascular ischemic changes. ? ? ? Dictated by: Saul Mckeon M.D. on 11/13/2021 at 12:30 ? ? Approved by: Saul Mckeon M.D. on 11/13/2021 at 12:33 ? CT - cervical spine: Radiologist's Impression: nt: Opal Gray MR#: [id number] : 1935 Acct:[id number] Age/Sex: 86 / F Date of Service: 11/13/21 Loc: ED Accession Number: [id number] ?? Procedure: CT cervical spine wo con Ordering Provider: Yesenia Rawls D.O. PROCEDURE:? CT CERVICAL SPINE WO CON ? INDICATIONS:? syncope in garden yesterday ? TECHNIQUE:? Noncontrast 3 mm thick sections acquired from the skull base to the T4 level.? Sagittal and coronal reformats were then constructed.? For radiation dose reduction, the following was used:? automated exposure control, adjustment of mA and/or kV according to patient size.? ? COMPARISON:? [facility], CT, CT HEAD/BRAIN WO CON, 11/13/2021, 11:53. ? FINDINGS:? Image quality:? Excellent.? ? Bones:? No fractures or dislocations.? There is degenerative disc disease, srhgjkks-gf-cbjqxk at C4-C5 and C5-C6, ozyb-fn-ubrrlgzw at C3-C4 and C6-C7.? Bilateral facet arthropathy, most pronounced at C3-C4.? There is severe atlantoaxial joint degeneration.? Visualized superior ribs are intact.? ? Soft tissues:? Prevertebral soft tissues are normal in thickness.? No paravertebral hematomas.? No apical pneumothoraces.? Moderate atherosclerotic calcifications of the aortic arch. ? ? IMPRESSION:? ? 1. No cervical spine fractures. 2. Degenerative disc and facet disease in cervical spine.? Dictated by: Saul Mckeon M.D. on 11/13/2021 at 12:19? CTA - brain/neck: Radiologist's Impression: atient: Opal Gray MR#: [id number] : 1935 Acct:[id number] Age/Sex: 86 / F Date of Service: 11/13/21 Loc: ED Accession Number: [id number] ?? Procedure: CT angio head and neck Ordering Provider: Botnick,Yesenia D.O. PROCEDURE:? CT ANGIO HEAD AND NECK ? INDICATIONS:? visual changes, possible TIA yesterday ? TECHNIQUE:? Noncontrast images were performed earlier in the day and not repeated.? ? After the administration of intravenous contrast, 1 mm thick sections acquired from the aortic arch through the [place].? Post-contrast 4.5 mm thick sections then re- acquired from the foramen magnum to the vertex.? 3-dimensional teanodp-nrvpwacuh-bgguzopkiy (MIP) and/or volume rendering reformats were acquired of the central intracranial vasculature and neck separately. For radiation dose reduction, the following was used:? automated exposure control, adjustment of mA and/or kV according to patient size.? ? COMPARISON:? [facility], MR, MR HEAD/BRAIN WO CON, 02/16/2020, 16:00.? [facility], CT, CT ANGIO HEAD AND NECK, 02/16/2020, 14:48.? [facility], CT, CT CERVICAL SPINE WO CON, 11/13/2021, 11:53.? [facility], CT, CT HEAD/BRAIN WO CON, 11/13/2021, 11:53. ? FINDINGS:? Image quality:? Excellent.? ? BRAIN:? CSF spaces:? Ventricles are normal in size and shape.? Basal cisterns are patent.? No extra-axial fluid collections.? ? Brain:? No midline shift.? No intracranial bleeds or masses.? Bright-white matter interface appears intact.? ? Skull and face:? Calvarium and facial bones appear intact, without suspicious lesions.? Orbits appear normal.? ? Sinuses:? Sinuses and mastoids are clear.? ? HEAD CT ANGIOGRAPHY:? Anterior circulation:? Intracranial internal carotid arteries are normal in size and flow.? The flow within the paired anterior cerebral arteries is normal and symmetric.? The flow within the middle cerebral arteries is normal and symmetric.? The anterior communicating artery is seen.? No aneurysms are seen.? ? Posterior circulation:? Visualized portions of the vertebral arteries demonstrate normal caliber, and join to form a normal appearing basilar artery.? Flow within the posterior cerebral arteries is normal and symmetric.? No aneurysms are seen.? ? NECK CT ANGIOGRAPHY:? Carotid system:? The great vessels demonstrate a conventional anatomy as they arise from the aortic arch.? The origins of the common carotid arteries appear patent.? The common carotid arteries demonstrate normal caliber and courses.? The bifurcation regions demonstrate atherosclerotic irregularity and calcification.? There is approximately 60% narrowing on the right and approximately 70% narrowing on the left. ? Posterior circulation:? The origins of the vertebral arteries both appear widely patent.? The more superior extracranial portions of both vertebral arteries also demonstrate normal courses and calibers.? They join to form a normal appearing basilar artery.? ? Soft tissues:? Visualized neck soft tissues demonstrate no suspicious abnormalities.? ? Bones:? No suspicious bony lesions.? Visualized cervical spine appears normally aligned.? At least moderate cervical spine degenerative changes are seen. ? ? ? IMPRESSION:? Stable focal proximal internal carotid artery stenosis can be seen, approximately 60% narrowing on the right and approximately 70% narrowing on the left. ? No significant intracranial arterial abnormality is seen.? ? ? Any quantitative measurements of stenosis were performed using NASCET criteria.? ? ? Dictated by: Kash Monsalve M.D. on 11/13/2021 at 13:36 ? ? Chest x-ray: Radiologist's Impression: atient: Opal Gray MR#: [id number] : 1935 Acct:[id number] Age/Sex: 86 / F Date of Service: 11/13/21 Loc: ED Accession Number: [id number] ?? Procedure: XR chest 1V Ordering Provider: Yesenia Rawls D.O. PROCEDURE:? XR CHEST 1V ? INDICATIONS:? chest pain ? TECHNIQUE:? One view of the chest was acquired.? ? COMPARISON:? [facility], , CHEST 2 VIEW, 11/24/2015, 16:30. ? FINDINGS:? ? Surgical changes and devices:? None.? ? Lungs and pleura:? Subtle patchy opacities in bilateral lower lung valentino are seen more prominent in left lower lobe concerning for bilateral lower lobe patchy infiltrates.? No pleural effusions or pneumothorax.? ? Mediastinum:? Mildly tortuous thoracic aorta is seen with aortic arch calcifications.? Heart size is normal.? ? Bones and chest wall:? No suspicious bony lesions.? Overlying soft tissues appear unremarkable.? ? IMPRESSION:? Finding is suggestive of left worse than right bilateral lower lobe patchy infiltrates.? No pleural effusion or pneumothorax. ? ? Dictated by: Teja Brown M.D. on 11/13/2021 at 11:36 ? ? Approved by: Teja Brown M.D. on 11/13/2021 at 11:37 ? ECG Data Interpretation: Normal sinus rhythm rate 62 NV interval 202 QRS [address] changes T-wave LVH strain noted previous EKG in 2012. MDM Narrative Medical decision making narrative: Patient's symptoms are concerning for possible posterior CVA those symptoms lasted an hour or less than completely resolved. Possible TIA. Patient feels better quite adamant about going. She recently had advanced care planning meeting with her primary care provider in she is a DNR. Patient CTA does show slight stenosis 60% and 70% in her carotid arteries. The snare may not be contributing to her symptoms yesterday. However she has complete resolution of symptoms for more than 12 hours. I recommend outpatient follow-up and aspirin daily which she is already taking. Not sure if this is TIA versus vertigo, but she is adamant that she is not dizzy never has been she has not had vomiting. Her NIH is 0 at this time. Discharge Plan Departure Patient Disposition: Home Clinical Impression: Carotid artery stenosis Instructions: DI for Transient Ischemic Attack Activity Restrictions/Additional Instructions: *You have been diagnosed with possible TIA which is a mini-stroke *What to do: [address] scan today did show that you have some carotid stenosis more on the left than the right. This will need to follow up with your primary care provider in regards to this. It may have caused some of your symptoms yesterday. Please get a Life Alert button as well and were and all times still that in case you fall help is easily accessible *Continue to take medications as directed Aspirin 81 mg once a *Follow up with your primary care provider in 2-3 days or call [phone] *Return to ER if you should have increasing balance issues, dizziness, facial droop difficulty speaking one-sided weakness or any new, worsening or concerning symptoms Prescriptions: No Action glucosamine HCl 500 mg tablet 500 mg PO BID 0RF Rx Instructions: administer with meals aspirin 81 mg tablet,delayed release (DR/EC) 81 mg PO DAILY 0RF multivitamin Tablet 1 tab PO DAILY 0RF Fish Oil PO 0RF cholecalciferol (vitamin D3) 25 mcg (1,000 unit) capsule 25 mcg PO DAILY 0RF simvastatin 40 mg tablet See Rx Instructions .ROUTE .COMPLEX Qty: 90 3RF Dose Instruction: TAKE 1 TABLET BY MOUTH AT BEDTIME Rx Instructions: TAKE 1 TABLET BY MOUTH AT BEDTIME zinc 50 mg tablet 50 mg PO DAILY 0RF Referrals: Rodriguez Le MD [Primary Care Provider] -
--- NOTE | 2021-11-13 13:52 | DI.CT.S_ITS ---
PROCEDURE: CT ANGIO HEAD AND NECK INDICATIONS: visual changes, possible TIA yesterday TECHNIQUE: Noncontrast images were performed earlier in the day and not repeated. After the administration of intravenous contrast, 1 mm thick sections acquired from the aortic arch through the [place] of [place]. Post-contrast 4.5 mm thick sections then re-acquired from the foramen magnum to the vertex. 3-dimensional qstqzgm-fbcmuyanm-forqsxrgin (MIP) and/or volume rendering reformats were acquired of the central intracranial vasculature and neck separately. For radiation dose reduction, the following was used: automated exposure control, adjustment of mA and/or kV according to patient size. COMPARISON: [facility], MR, MR HEAD/BRAIN WO CON, 02/16/2020, 16:00. [facility], CT, CT ANGIO HEAD AND NECK, 02/16/2020, 14:48. [facility], CT, CT CERVICAL SPINE WO CON, 11/13/2021, 11:53. [facility], CT, CT HEAD/BRAIN WO CON, 11/13/2021, 11:53. FINDINGS: Image quality: Excellent. BRAIN: CSF spaces: Ventricles are normal in size and shape. Basal cisterns are patent. No extra-axial fluid collections. Brain: No midline shift. No intracranial bleeds or masses. Bright-white matter interface appears intact. Skull and face: Calvarium and facial bones appear intact, without suspicious lesions. Orbits appear normal. Sinuses: Sinuses and mastoids are clear. HEAD CT ANGIOGRAPHY: Anterior circulation: Intracranial internal carotid arteries are normal in size and flow. The flow within the paired anterior cerebral arteries is normal and symmetric. The flow within the middle cerebral arteries is normal and symmetric. The anterior communicating artery is seen. No aneurysms are seen. Posterior circulation: Visualized portions of the vertebral arteries demonstrate normal caliber, and join to form a normal appearing basilar artery. Flow within the posterior cerebral arteries is normal and symmetric. No aneurysms are seen. NECK CT ANGIOGRAPHY: Carotid system: The great vessels demonstrate a conventional anatomy as they arise from the aortic arch. The origins of the common carotid arteries appear patent. The common carotid arteries demonstrate normal caliber and courses. The bifurcation regions demonstrate atherosclerotic irregularity and calcification. There is approximately 60% narrowing on the right and approximately 70% narrowing on the left. Posterior circulation: The origins of the vertebral arteries both appear widely patent. The more superior extracranial portions of both vertebral arteries also demonstrate normal courses and calibers. They join to form a normal appearing basilar artery. Soft tissues: Visualized neck soft tissues demonstrate no suspicious abnormalities. Bones: No suspicious bony lesions. Visualized cervical spine appears normally aligned. At least moderate cervical spine degenerative changes are seen. IMPRESSION: Stable focal proximal internal carotid artery stenosis can be seen, approximately 60% narrowing on the right and approximately 70% narrowing on the left. No significant intracranial arterial abnormality is seen. Any quantitative measurements of stenosis were performed using NASCET criteria. Dictated by: Kash Monsalve M.D. on 11/13/2021 at 13:36 Approved by: Kash Monsalve M.D. on 11/13/2021 at 13:40
== END 2021-11-13 15:27 | disposition home or self-care (01) ==
PROVIDERS: Emergency Provider Emergency Medicine; PCP Internal Medicine
DX: I65.23 Occlusion and stenosis of bilateral carotid arteries (principal); Z87.891 Personal history of nicotine dependence; Z66 Do not resuscitate; R03.0 Elevated blood-pressure reading, without diagnosis of hypertension
CPT/HCPCS: 36415; 70450; 70496; 70498; 71045; 72125; 80053; 82550; 83690; 83735; 84484; 85025; 93005; 93010; 99284; 99285